=== PATIENT | male | born 1940 | race Caucasian/White ===

== ENCOUNTER → 2018-06-23 | Outpatient (CLI) | payer MEDICARE ==
[~2018-06-23] MED LIST: ANORO INH; CARVEDILOL3.125 MG PO; FINASTERIDE5 MG PO; FLOMAX0.4 MG PO; LISINOPRIL2.5 MG PO; MYRBETRIQ50 MG PO; TYLENOL PO; VENTOLIN HFA18 GM INH
--- NOTE | 2018-06-23 15:23 | Diagnostic Imaging Report ---
EXAMINATION: PA and lateral views of the chest. COMPARISON: None CLINICAL HISTORY: Preoperative study for prostate surgery DISCUSSION: The lungs are hyperinflated with increased AP diameter of the chest and hyperlucencies in the upper lung zones. Linear opacities in the lung bases compatible with subsegmental atelectasis. No airspace consolidation or pleural effusion. Tortuous thoracic aorta with otherwise normal cardiomediastinal contour. No acute osseous abnormalities. Multiple healed right rib fracture deformities. Cervical spine fusion hardware and left proximal humeral surgical hardware partially visualized. IMPRESSION: Linear subsegmental atelectasis in the lung bases. Pulmonary hyperinflation and upper lung hyperlucencies compatible with emphysema. Signed by: Dr. Eliseo Cummings M.D. on 06/23/2018 3:20 PM
[2018-06-23 15:48] LABS: BASOPHILS % 0.3 % (0.0-1.0); EOSINOPHILS # (AUTO) 0.2 (0.0-0.4); EOSINOPHILS % 2.8 % (0.0-6.0); HEMATOCRIT 38.3 % (38.2-49.6); HEMOGLOBIN 12.7 g/dL (14.0-18.0); LYMPHOCYTES # (AUTO) 2.1 (1.0-3.2); LYMPHOCYTES % 36.5 % (18.0-39.1); MEAN CORPUSCULAR HEMOGLOBIN 30.8 pg (28-32); MEAN CORPUSCULAR HGB CONC 33.2 g/dL (31-35); MEAN CORPUSCULAR VOLUME 92.7 fL (81-99); MONOCYTES # (AUTO) 0.5 (0.2-0.8); NEUTROPHILS % 51.2 % (38.7-80.0); PLATELET COUNT 188 x10e3/uL (140-360); RED BLOOD COUNT 4.13 x10e6/uL (4.3-5.7); RED CELL DISTRIBUTION WIDTH 13.2 % (11.7-14.4)
--- OUTSIDE RECORDS SUMMARY | 2018-06-24 08:36 | XMS REPORT ---
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 Assessment Arthritis M19.90 Active Assessment Obstructive sleep apnea G47.33 Active Assessment Chronic airway obstruction, not elsewhere classified J44.9 Active Problem 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 Problem Systolic dysfunction I51.9 Active Problem Prostate cancer C61 Active Problem Obstructive sleep apnea G47.33 Active Problem Arthritis M19.90 Active Problem Chronic airway obstruction, not elsewhere classified J44.9 Active Medications Medication Code System Code Instructions Start Date End Date Status Dosage Coreg [facility] 99137657186 3.125 MG Orally twice a day (bid) Active as directed Aleve [facility] [address]-64 Active not defined Coreg ND 06696781989 3.125 MG Orally twice a day (bid) Active as directed Lisinopril ND 88992306961 2.5 MG Orally Once a day Active 1 tablet Flomax ND 16266001601 0.4 MG Orally Once a day Active 1 capsule Vital Signs Date/Time: Apr 02, 2018 BMI 39.06 Index Weight 200 lbs Height 5'8 in Cardiac Monitoring Heart Rate 48 /min Blood Pressure Diastolic 58 mm Hg Blood Pressure Systolic 118 mm Hg Results No Known Results Summary Purpose eClinical[employer] Submission
--- OUTSIDE RECORDS SUMMARY | 2018-06-24 08:36 | XMS REPORT ---
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 Problem Chronic airway obstruction, not elsewhere classified J44.9 Active Problem Obstructive sleep apnea G47.33 Active Problem 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 Assessment Systolic dysfunction I51.9 Active Assessment Chronic airway obstruction, not elsewhere classified J44.9 Active Problem Systolic dysfunction I51.9 Active Problem Arthritis M19.90 Active Medications Medication Code System Code Instructions Start Date End Date Status Dosage Tramadol HCl [facility] 32554898553 50 MG Orally every 6 hrs Active 1 tablet as needed Flomax ND 01112349979 0.4 MG Orally Once a day Active 1 capsule Coreg [facility] 89580161768 3.125 MG Orally twice a day (bid) Active as directed Lisinopril [facility] 84533219543 2.5 MG Orally Once a day Active 1 tablet Aleve [facility] [address]-92 Active not defined Vital Signs Date/Time: May 08, 2017 BMI 40.03 Index Weight 205 lbs Height 5'8 in Cardiac Monitoring Heart Rate 48 /min Blood Pressure Diastolic 72 mm Hg Blood Pressure Systolic 132 mm Hg Results No Known Results Summary Purpose [employer]ClinicalWorks Submission
--- OUTSIDE RECORDS SUMMARY | 2018-06-24 08:36 | XMS REPORT ---
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
--- OUTSIDE RECORDS SUMMARY | 2018-06-24 08:36 | XMS REPORT | Summary of Care ---
Author Author [facility] Address Unknown Phone Unavailable Encounter Deyanirar_gisel([facility]) [id number] Date(s): 04/21/15 - 05/20/15 [facility] Discharge Disposition: Home Attending Physician: Sangeetha Baker MD Vital Signs No data available for this section Problem List No data available for this section Allergies, Adverse Reactions, Alerts No data available for this section Medications No data available for this section Results No data available for this section Immunizations No data available for this section Procedures No data available for this section Social History No data available for this section Assessment and Plan No data available for this section
--- OUTSIDE RECORDS SUMMARY | 2018-06-24 08:36 | XMS REPORT ---
Author Author Chris Perez Organization [employer] Address Unknown Phone Unavailable Care Team Providers Care Retail Zone Specialist Name Role Phone Chris Perez CP Unavailable [...] Start Date End Date Status Dosage Coreg [facility] 30644421726 3.125 MG Orally twice a day (bid) Active as directed Lisinopril ND 27675923224 2.5 MG Orally Once a day Active 1 tablet Tramadol HCl ND 80329066525 50 MG Orally every 6 hrs Active 1 tablet as needed Aleve [facility] [address]-00 Active not defined Flomax [facility] 68369001622 0.4 MG Orally Once a day Active 1 capsule Vital Signs Date/Time: Nov 27, 2016 BMI 39.25 Index Weight 201 lbs Height 5'8 in Cardiac Monitoring Heart Rate 64 /min Blood Pressure Diastolic 72 mm Hg Blood Pressure Systolic 132 mm Hg Results No Known Results Summary Purpose [employer]ClinicalWorks Submission
--- OUTSIDE RECORDS SUMMARY | 2018-06-24 08:36 | XMS REPORT | Summary of Care ---
Author Author [facility] Address Unknown Phone Unavailable Encounter HQ Encntr_gisel([facility]) [id number] Date(s): 10/21/16 - 11/19/16 [facility] Discharge Disposition: Home or Self Care Attending Physician: Sangeetha Baker MD Vital Signs [...]
--- OUTSIDE RECORDS SUMMARY | 2018-06-24 08:36 | XMS REPORT | Summary of Care ---
Author Author [facility] Outpatient Imaging [facility] Outpatient Imaging [place] Address Unknown Phone Unavailable Encounter HQ Encntr_alias([facility]) [id number] Date(s): 03/14/17 - 03/14/17 [facility] Outpatient Imaging [place] [address] [place], [place] [address]- [phone] Encounter Diagnosis Chronic obstructive pulmonary disease, unspecified (Final) - 03/19/17 Discharge Disposition: Home or Self Care Attending Physician: Jaqueline Robins MD Vital Signs No data available for [...]
--- OUTSIDE RECORDS SUMMARY | 2018-06-24 08:36 | XMS REPORT ---
Author Author [facility] Address Unknown Phone Unavailable Care Team Providers Care Desulfurizer Machine Name Role Phone PÉREZ BROWN Unavailable Unavailable Problems This patient has no known problems. Allergies, Adverse Reactions, Alerts This patient has no known allergies or adverse reactions. Medications This patient has no known medications. Results Test Description Test Time Test Comments Text Results Atomic Results Result Comments CHEST 2 VIEWS 2018-06-23 15:16:00 [place] [address] Patient Name: PHILIPP SANTIAGO MR #: [id number] : 1940 Age/Sex: 78/M Req #: [id number] [facility] Physician: Ordered by: PÉREZ BROWN MD Report #: [id number] Location: OR Room/Bed: Procedure: [id number] DX/CHEST 2 VIEWS Exam Date: 06/23/18 Exam Time: 1505 REPORT STATUS: Signed EXAMINATION: PA and lateral views of the chest. COMPARISON: None CLINICAL HISTORY: Preoperative study for prostate surgery DISCUSSION: The lungs are hyperinflated with increased AP diameter of the chest and hyperlucencies in the upper lung zones. Linear opacities in the lung bases compatible with subsegmental atelectasis. No airspace consolidation or pleural effusion. Tortuous thoracic aorta with otherwise normal cardiomediastinal contour. No acute osseous abnormalities. Multiple healed right rib fracture deformities. Cervical spine fusion hardware and left proximal humeral surgical hardware partially visualiz ed. IMPRESSION: Linear subsegmental atelectasis in the lung bases. Pulmonary hyperinflation and upper lung hyperlucencies compatible with emphysema. Signed by: Dr. Hector Maldonado M.D. on 06/23/2018 3:20 PM Dictated By: HECTOR MALDONADO MD 1520 Transcribed By: TRE on 06/23/18 1520 COPY TO: PÉREZ BROWN MD
--- OUTSIDE RECORDS SUMMARY | 2018-06-24 08:36 | XMS REPORT | Summary of Care ---
Author Author [facility] Address Unknown Phone Unavailable Encounter Almantr_gisel([facility]) [id number] Date(s): 05/26/15 - 06/24/15 [facility] Discharge Disposition: Home Attending Physician: Sangeetha Baker [...]
--- OUTSIDE RECORDS SUMMARY | 2018-06-24 08:36 | XMS REPORT | Continuity of Care Document ---
Author Author [facility] Address Unknown Phone Unavailable Problems Problem Status Onset Date Classification Date Reported Comments Source Chronic obstructive pulmonary disease, unspecified 03/20/2017 06/20/2017 [facility] D[facility] J44.9 - CHRONIC OBSTRUCTIVE PULMONARY Active 03/14/2017 [facility] Daugherty S/P TOTAL SHOULDER ARTHROPLASTY Active 08/24/2016 [facility] Chronic airway obstruction, not elsewhere classified Active Diagnosis 06/02/2018 Chris Perez Obstructive sleep apnea Active Diagnosis 06/02/2018 Chris Perez Atheroscler-limb&claudic Active Diagnosis 06/02/2018 Chris Perez Systolic dysfunction Active Diagnosis 06/02/2018 Chris Perez Arthritis Active Diagnosis 06/02/2018 Chris Perez Other symptoms involving cardiovascular system Active Diagnosis 06/02/2018 Chris Perez Prostate cancer Active Problem 06/02/2018 Chris Perez RT SHOULDER Active [facility] Medications Medication Details Route Status Patient Instructions Ordering Provider Order Date Source Lisinopril 1 tablet Orally Active 2.5 MG Orally Once a day Chris Perez Coreg as directed Orally Active 3.125 MG Orally twice a day (bid) Chris Perez Tramadol HCl 1 tablet as needed Orally Active 50 MG Orally every 6 hrs Chris Perez Aleve not defined NA Active dayne Perez Flomax 1 capsule Orally Active 0.4 MG Orally Once a day Chris Perez Allergies, Adverse Reactions, Alerts Substance Category Reaction Severity Reaction type Status Date Reported Comments Source Morphine Sulfate Adverse Reaction Info Not Available Adverse Reaction Active 04/02/2018 Chris Perez Immunizations Immunization Date Given Site Status Last Updated Comments Source Results Order Name Results Value Reference Range Date Interpretation Comments Source Chest 2 views DX Chest 2 views DX CHEST TWO VIEW INDICATION: Chronic obstructive pulmonary disease. No acute complaints at this time. COMPARISON: 03/14/2017 chest x-ray FINDINGS: Lungs are hyperinflated. Mild bibasal scarring. No acute infiltrate or pleural effusion. Cardiomediastinal silhouette and bony thorax normal. IMPRESSION: Pulmonary hyperinflation stable at a one year interval. No acute infiltrate. END IMPRESSION SL: [id number] 03/26/2018 - - Read by: Trey Carmen MD Dictated Date/time: 03/26/18 13:36 Electronically Signed by: Trey Carmen MD 03/26/18 13:37 FINAL REPORT [facility] Chest 2 views DX Chest 2 views DX Clinical Indication: - J44.9 Chronic obstructive pulmonary disease, decreased pulse Comparison: None FINDINGS: The PA and lateral chest radiographs shows normal lung volumes without interstitial or airspace opacities, pleural effusions or pneumothorax. There is eventration of the diaphragm. The cardiomediastinal contours are normal for the age of the patient with aortic tortuosity. There are degenerative changes in the spine and shoulders. IMPRESSION: No chest radiographic evidence of acute cardiopulmonary disease. SL: [id number] 03/14/2017 - - Read by: Remy Lentz MD Dictated Date/time: 03/14/17 15:49 Electronically Signed by: Remy Lentz MD 03/14/17 15:50 FINAL REPORT [facility] Vital Signs Vital Sign Value Date Comments Source Weight 200 04/02/2018 Ahmed Ahmed Heart Rate 48 04/02/2018 Ahmed Ahmed Diastolic (mm Hg) 58 04/02/2018 Ahmed Ahmed Systolic (mm Hg) 118 04/02/2018 Ahmed Ahmed Weight 205 05/08/2017 Ahmed Ahmed Heart Rate 48 05/08/2017 Ahmed Ahmed Diastolic (mm Hg) 72 05/08/2017 Ahmed Ahmed Systolic (mm Hg) 132 05/08/2017 Ahmed Ahmed Weight 201 11/27/2016 Ahmed Ahmed Heart Rate 64 11/27/2016 Ahmed Ahmed Diastolic (mm Hg) 72 11/27/2016 Ahmed Ahmed Systolic (mm Hg) 132 11/27/2016 Ahmed Ahmed Encounters Location Location Details Encounter Type Encounter Number Reason For Visit Attending Provider ADM Date DC Date Status Source [facility] Patients [id number] [facility] 04/21/2015 05/21/2015 [facility] Patients [id number] [facility] 05/26/2015 06/25/2015 [facility] HOOPER OP Therapy Patients [id number] Sangeetha Samuel 10/21/2016 11/20/2016 [facility] Outpatient Imaging [facility] [id number] Jaqueline Robins 03/14/2017 03/15/2017 K[facility] WILKERSON [place] Procedures Procedure Code Date Perfomer Comments Source
== END | disposition home or self-care (01) ==
LOC: RAD 05:00 → OR 06-24 08:32 → EDSTATUS 06-24 10:30
PROVIDERS: ATTEND Urology
DX: C61 Malignant neoplasm of prostate (principal); Z53.09 Procedure and treatment not carried out because of other contraindication
CPT/HCPCS: 36415; 71046; 85025; 86850; 86900; 93005

== ENCOUNTER 2018-07-20 12:15 | Inpatient (IN) | payer MEDICARE ==
[~2018-07-20] VITALS: Ht 172.7 cm; Wt 96.2 kg
[2018-07-20] MEDS ORDERED: CEFAZOLIN SOD 1 GM/NS 50ML 50 ML IV ONE (12:28)
[2018-07-20 14:33] LABS: ANION GAP 10.5 mmol/L (8-16); BLOOD UREA NITROGEN 24 mg/dL (7-26); BUN/CREATININE RATIO 22 (6-25); CALCIUM 9.6 mg/dL (8.4-10.2); CARBON DIOXIDE 27 mmol/L (22-29); CHLORIDE 107 mmol/L (98-107); CREATININE, SERUM 1.07 mg/dL (0.72-1.25); EST GLOMERULAR FILTRATION RATE > 60 ML/MIN (60-); GLUCOSE 78 mg/dL (74-118); POTASSIUM 4.5 mmol/L (3.5-5.1); SODIUM 140 mmol/L (136-145)
[2018-07-20] MEDS ORDERED: MIDAZOLAM HCL 2 MG/2 ML VIAL ONE (16:49)
[2018-07-20] MEDS ORDERED: KETAMINE HCL INJ 50 MG/ML 10 ML VIAL ONE (16:49)
[2018-07-20] MEDS ORDERED: FENTANYL CITRATE/PF 100MCG/2 ML INJ ONE ×2 (16:49→17:53)
[2018-07-20] MEDS ORDERED: D5.45%NS/KCL 20MEQ 1,000 ML IV SCH (17:03)
[2018-07-20] MEDS ORDERED: ACETAMINOPHEN 1000 MG/100 ML IV PRN (17:15)
[2018-07-20] MEDS ORDERED: HYDROMORPHONE 0.2MG/ML-SOD CHL 30ML PCA SYRINGE IV PRN (17:15)
[2018-07-20] MEDS ORDERED: NALOXONE HCL INJ 0.4 MG/ML AMP IV PRN (17:15)
[2018-07-20] MEDS ORDERED: ONDANSETRON HCL INJ 2MG/ML 2ML 2 MG/ML VIAL IV PRN (17:15)
[2018-07-20] MEDS ORDERED: DIPHENHYDRAMINE HCL INJ 50 MG/ML VIAL IM PRN (17:15)
[2018-07-20] MEDS ORDERED: HYDROMORPHONE 2MG/ML 2 MG/ML ML ONE (17:56)
[2018-07-20] MEDS ORDERED: METOCLOPRAMIDE HCL 10 MG/2ML VIAL ONE (17:56)
[2018-07-20] MEDS ORDERED: ACETAMINOPHEN 1000 MG/100 ML 100 ML IV PRN ×2 (18:00→18:45)
--- NOTE | 2018-07-20 18:03 | NUR ---
received report from may in recovery awaiting for pt to arrive to unit
[2018-07-20] MEDS ORDERED: HYDROMORPHONE 0.2MG/ML-SOD CHL 30ML PCA SYRINGE IV ONE (18:23)
--- NOTE | 2018-07-20 18:40 | NUR ---
received pt to floor aa0x3 but drowsy v/s read normal except for 02 sat of 72%. on 2 L, raised pt up and increased to 3l pt 02 sat increased to 94% on ra pt c/o of pain rating it a 4/10 to his stomach abd site dressing is clean and dry. asad drain to the left lower abd left ac 20 with lr running site is clean and dry staple processing machine operator discontinued per md monteiro per pt c/o of extreme nausea will continue to monitor pt until shift change call light is within easy reach, instructed to call for assistance if needed
[2018-07-20] MEDS ORDERED: SEVOFLURANE INHAL SOLN 250 ML PEN BTL ONE (18:42)
[2018-07-20] MEDS ORDERED: ONDANSETRON HCL INJ 2MG/ML 2ML 2 MG/ML VIAL ONE (18:42)
[2018-07-20] MEDS ORDERED: PROPOFOL IV EMULSION 10 MG/ML 20 ML VIAL ONE (18:42)
[2018-07-20] MEDS ORDERED: PHENYLEPHRINE HCL 1% 10 MG/ML VIAL ONE (18:42)
[2018-07-20] MEDS ORDERED: LIDOCAINE HCL 2% LOCAL INJ 5 ML SDV VIAL INJ ONE (18:42)
[2018-07-20] MEDS ORDERED: ROCURONIUM BROMIDE 10 MG/ML 5ML VIAL ONE (18:42)
[2018-07-20] MEDS ORDERED: NEOSTIGMINE 5 MG/5ML SYR ONE (18:42)
[2018-07-20] MEDS ORDERED: DEXAMETHASONE SOD PHOS INJ 4 MG/ML VIAL ONE (18:42)
[2018-07-20] MEDS ORDERED: GLYCOPYRROLATE INJ 1MG/ 5 ML SYR ONE (18:42)
[2018-07-20] MEDS ORDERED: ACETAMINOPHEN 325 MG TAB PO PRN (18:45)
[2018-07-20] MEDS ORDERED: HYDROMORPHONE 1MG/1ML INJ IV PRN (18:45)
[2018-07-20] MEDS ORDERED: HYDROCODONE/APAP 5MG-325MG TAB PO PRN (18:45)
[2018-07-20] MEDS: HYDROMORPHONE 2MG/ML 2 MG/ML ML IV PRN (19:39)
[2018-07-20 19:40] VITALS: BP 144/70
--- NOTE | 2018-07-20 19:40 | NUR ---
PATIENT C/O PAIN TO THE ABDOMEN WITH PAIN SCORE #9, MEDICATED WITH DILAUDID ORDERED. DRESSING DRY AND INTACT TO THE ABDOMEN WITHOUT BLEEDING, VIKTOR DRAIN INTACT. CALL LIGHT WITHIN EASY REACH, PATIENT INSTRUCTED TO CALL FOR ASSISTANCE NEEDED.
[2018-07-20 20:00] VITALS: BP 144/70
--- NOTE | 2018-07-20 21:20 | NUR ---
PATIENT IS SOUNDLY ASLEEP, NO RESPIRATORY DISTRESS OBSERVED AND HE DENIES PAIN. HE'S NOT STAYING FULLY AWAKE TO COMPLETE HIS ADMISSION ASSESSMENT.
[2018-07-20] MEDS: CEFAZOLIN SOD 1 GM/NS 50ML 50 ML IV SCH (22:17)
[2018-07-21] VITALS (27 sets, daily range): BP systolic 94–162; BP diastolic 55–90
[2018-07-21] MEDS: HYDROMORPHONE 2MG/ML 2 MG/ML ML IV PRN ×2 (01:10→14:04)
[2018-07-21] MEDS: ONDANSETRON HCL INJ 2MG/ML 2ML 2 MG/ML VIAL IV PRN ×3 (01:11→14:04)
--- NOTE | 2018-07-21 01:11 | NUR ---
PATIENT C/O NAUSEA AND PAIN TO THE ABDOMEN WITHE PAIN SCORE #7, MEDICATED WITH DILAUDID ORDERED. ASSISTED WITH ADLS, BED ALARM ON, CALL LIGHT WITHIN EASY REACH.
--- NOTE | 2018-07-21 01:23 | History and Physical ---
The patient just now received on medical floor for status post bilateral pelvic lymph node dissection, done by Dr. Reddy Harding. HISTORY OF PRESENT ILLNESS: This is a pleasant 78-year-old male, who is now status post bilateral pelvic lymph node dissection removal. The patient had baseline Corie 8 prostate cancer. He also has stable COPD, obstructive sleep apnea. The patient also has enlarged prostate as well. He is on multiple medication. He has hypertension. The patient is stable. WOOD SETTER with pain medication seemed to cause the patient some drowsiness. The patient is arousable to awake, however. Medication will be adjusted. PAST MEDICAL HISTORY: Corie 8 prostate cancer. Enlarged prostate. Hypertension. PAST SURGICAL HISTORY: He had left shoulder surgery, TURP procedure. SOCIAL HISTORY: The patient does not smoke or use alcohol. No recreational drug use. ALLERGIES: TO MORPHINE. HOME MEDICATIONS: List will be available for review, but basically Coreg, finasteride, lisinopril, Myrbetriq, Flomax, Anoro, and Tylenol p.r.n. PHYSICAL EXAMINATION: VITAL SIGNS: PACU blood pressure is 110/62, pulse rate 80, respirations 18, temperature is 98. GENERAL: The patient is not in acute distress, awake. HEENT: Normocephalic, atraumatic. Anicteric. NECK: Supple grossly. PULMONARY: Diminished breath sounds. CARDIOVASCULAR: S1 and S2. Regular rate and rhythm. ABDOMEN: Soft, status post bilateral pelvic lymph node dissection. EXTREMITIES: No cyanosis or edema. NEUROLOGIC: No gross focal deficit. LABORATORY DATA: Still pending. IMPRESSION: 1. Postoperative day #1 status post bilateral pelvic lymph node dissection. 2. Corie 8 prostate cancer. 3. Baseline chronic obstructive pulmonary disease, obstructive sleep apnea, depression, hypertension, enlarged prostate. PLAN: Repeat the lab work in the morning. Pain medication for as needed. Oral pain medications, Tylenol. We will monitor the patient closely. We will repeat the lab work. Gentle IV fluids. MD DANIELLE Elliott/CYL /[id number]
--- NOTE | 2018-07-21 04:52 | NUR ---
NOTIFIED BY RESPIRATORY THERAPIST THAT THE PATIENT'S HEART RATE IS [address] ON THE C-PAP. UPON ASSESSMENT THE PATIENT SEEM ANXIOUS AND HE WANTED THE C-PAP TAKEN OFF. HE WAS EDUCATED ON THE IMPORTANCE OF HAVING THE C-PAP BUT HE CONTINUE TO REQUEST IT TAKEN OFF. IT WAS REMOVED, RED AREA NOTED ON HIS NOSE AND HE DENIES PAIN AT THE SURGICAL SITE. HE WAS INSTRUCTED TO BREATH IN AND OUT SLOWLY. WILL REASSESS THE HEART RATE ONCE THE PATIENT IS RELAX.
--- NOTE | 2018-07-21 05:27 | NUR ---
VITAL SIGNS 105/84, 135,19, OXYGEN SATURATION 100% ON 3L/NC. NO RESPIRATORY DISTRESS OBSERVED, PATIENT STATED "I FEEL FINE". WILL NOTIFY THE ATTENDING PHYSICIAN OF THE PATIENT'S HEART RATE.
[2018-07-21 05:40] LABS: BASOPHILS % 0.1 % (0.0-1.0); HEMATOCRIT 37.9 % (38.2-49.6); HEMOGLOBIN 12.7 g/dL (14.0-18.0); LYMPHOCYTES # (AUTO) 1.1 (1.0-3.2); LYMPHOCYTES % 9.2 % (18.0-39.1); MEAN CORPUSCULAR HEMOGLOBIN 31.1 pg (28-32); MEAN CORPUSCULAR HGB CONC 33.5 g/dL (31-35); MEAN CORPUSCULAR VOLUME 92.9 fL (81-99); MONOCYTES % 7.6 % (4.4-11.3); NEUTROPHILS # (AUTO) 10.2 (2.1-6.9); NEUTROPHILS % 82.2 % (38.7-80.0); PLATELET COUNT 198 x10e3/uL (140-360); RED BLOOD COUNT 4.08 x10e6/uL (4.3-5.7); RED CELL DISTRIBUTION WIDTH 12.9 % (11.7-14.4)
[2018-07-21 05:53] LABS: ANION GAP 12.4 mmol/L (8-16); CREATININE, SERUM 1.25 mg/dL (0.72-1.25); POTASSIUM 4.4 mmol/L (3.5-5.1)
[2018-07-21] MEDS: CEFAZOLIN SOD 1 GM/NS 50ML 50 ML IV SCH ×3 (06:30→21:47)
[2018-07-21] MEDS ORDERED: SODIUM CHLORIDE 0.9% 500ML 500 ML IV ONE ×2 (08:45→18:00)
[2018-07-21] MEDS ORDERED: TRAMADOL HCL 50 MG TAB PO PRN (08:45)
[2018-07-21] MEDS ORDERED: CARVEDILOL 3.125 MG TAB PO SCH (09:00)
[2018-07-21] MEDS: PANTOPRAZOLE 40 MG 10ML VIAL IV SCH (09:06)
[2018-07-21] MEDS: DOCUSATE SODIUM 100 MG CAP PO SCH ×2 (09:07→17:00)
[2018-07-21] MEDS: SENNOSIDES 8.6 MG TAB PO SCH ×2 (09:07→17:32)
[2018-07-21] MEDS: CARVEDILOL 3.125 MG TAB PO SCH ×2 (09:15→17:31)
[2018-07-21] MEDS ORDERED: BISACODYL 10 MG SUPP PR ONE (09:15)
[2018-07-21] MEDS: SODIUM CHLORIDE 0.9% 1000ML 1,000 ML IV SCH ×2 (09:35→21:41)
--- NOTE | 2018-07-21 13:32 | NUR ---
PT C/O OF FAST HR, ASKED TO TAKE HR MANUALLY . READY 87 WITH IRREGULAR HEART BEAT PROTOCOL EGK ORDER AT THIS TIME
--- NOTE | 2018-07-21 14:04 | NUR ---
NOTIFIED MD K[facility]IS[facility] REGARDING EKG READING AND PT C/O CP. ORDERS TO CX MD MOLINA RECEIVED PT MEDICATED WITH DILAUDID FOR C/O CP V/S [id number] WITH HR OF 66
[2018-07-21] MEDS ORDERED: ADENOSINE 6 MG/2 ML VIAL IV NR (16:30)
--- NOTE | 2018-07-21 17:00 | NUR ---
NOTIFIED MD BROWN REGARDING PT CONDITION (A FIB, TACHYCARDIA, MD MOLINA CONSULT , LOW URINE OUTPUT, <200 CC IN 12 HR SHIFT). MD AWARE OF PT BEING TRANSFERED TO ICU, ORDERS TO GIVE 500NS BOLUS , AND ASK MD MOLINA ABOUT STARTING PT ON LOVENOX DRIP NOTIFIED MD MOLINA . MD MOLINA HAS STARTED PT ON ANTICOAGULANT THERAPY
--- NOTE | 2018-07-21 18:16 | NUR ---
PT TRANSFERRED TO ICU ROOM 192 AT THIS TIME
--- NOTE | 2018-07-21 18:22 | NUR ---
MD KOWALSKI COVERING FOR MD K[facility]IS[facility] NOTIFIED OF PT CONDITION AND OF TRANSFER TO ICU AT THIS TIME
[2018-07-21] MEDS: DILTIAZEM HCL 125 ML IV SCH ×3 (18:26→23:00)
--- NOTE | 2018-07-21 18:43 | NUR ---
recvd pt from [facility]. hr afib 133. started on cardizem iv as ordered, back now to nsr w/ occ pac, at bedside, updated on current status and poc.
[2018-07-21] MEDS: ENOXAPARIN SODIUM INJ 100 MG/ML SYR SC SCH (21:46)
[2018-07-21] MEDS ORDERED: HETASTARCH 6%/NACL INJ 500 ML IV ONE (22:30)
--- NOTE | 2018-07-21 23:02 | Consultation ---
DATE OF CONSULTATION: 07/21/2018 Cardiology Consultation CHIEF COMPLAINT: The patient is a 78-year-old with premature ventricular contractions. HISTORY OF PRESENT ILLNESS: The patient is a 78-year-old, who had pelvic lymph node dissection and noted to have some premature ventricular contractions after the surgery. The patient is in no chest pain. No shortness of breath. No syncope. No dizziness. PAST MEDICAL HISTORY: Significant for: 1. COPD. 2. Sleep apnea. 3. Prostate cancer. 4. Previous cholecystectomy. MEDICATIONS AT HOME: Include: 1. Coreg. 2. Lisinopril. 3. Flomax. 4. Proscar. SOCIAL HISTORY: The patient quit smoking 35 years ago. The patient does not drink. FAMILY HISTORY: The patient's mother and father both had heart disease. PHYSICAL EXAMINATION: GENERAL: The patient is a well-developed, well-nourished male, in no obvious distress. VITAL SIGNS: Included a temperature of 95.5, pulse of 68, blood pressure of 99/75. HEAD, EARS, EYES, NOSE, AND THROAT: The patient's cranium was normocephalic and atraumatic. Extraocular muscles were intact. Sclerae were anicteric. Pupils were equal, round, reactive to light. There is no pallor or cyanosis of the oral mucosa. There is no erythema, edema of the throat. NECK: Supple. No jugular venous distention. No carotid bruits. CHEST: Clear to auscultation and percussion. CARDIAC: Demonstrated normal S1 and S2 with a short 2/6 systolic murmur. ABDOMEN: Demonstrated good bowel sounds. No tenderness. No masses. EXTREMITIES: There was no clubbing, no cyanosis, no edema. NEUROLOGIC: The patient was alert and oriented x3. Cranial nerves II through XII are intact. Motor strength was +5/+5 in all limbs. The patient's EKG demonstrated normal sinus rhythm with some premature ventricular contractions. IMPRESSION: The patient is a 78-year-old, noted to have premature ventricular contractions and thus postoperatively, the patient has had no chest pain, no dyspnea. RECOMMENDATIONS: Are as follows: 1. The patient will need to be monitored on telemetry. 2. Repeat echocardiogram has been ordered. Eliseo White MD [facility]/MODL /[id number] cc: Hernando Joseph MD
[2018-07-22] VITALS (16 sets, daily range): BP systolic 99–152; BP diastolic 39–70
[2018-07-22] MEDS: ONDANSETRON HCL INJ 2MG/ML 2ML 2 MG/ML VIAL IV PRN (02:40)
[2018-07-22 05:06] LABS: BASOPHILS % 0.1 % (0.0-1.0); EOSINOPHILS # (AUTO) 0.2 (0.0-0.4); EOSINOPHILS % 2.1 % (0.0-6.0); HEMATOCRIT 33.2 % (38.2-49.6); HEMOGLOBIN 10.6 g/dL (14.0-18.0); LYMPHOCYTES # (AUTO) 1.3 (1.0-3.2); LYMPHOCYTES % 13.7 % (18.0-39.1); MEAN CORPUSCULAR HEMOGLOBIN 30.5 pg (28-32); MEAN CORPUSCULAR HGB CONC 31.9 g/dL (31-35); MEAN CORPUSCULAR VOLUME 95.4 fL (81-99); MONOCYTES # (AUTO) 1.1 (0.2-0.8); MONOCYTES % 12.2 % (4.4-11.3); NEUTROPHILS # (AUTO) 6.5 (2.1-6.9); NEUTROPHILS % 71.1 % (38.7-80.0); PLATELET COUNT 126 x10e3/uL (140-360); RED BLOOD COUNT 3.48 x10e6/uL (4.3-5.7); RED CELL DISTRIBUTION WIDTH 13.4 % (11.7-14.4)
[2018-07-22 05:25] LABS: ANION GAP 9.6 mmol/L (8-16); BLOOD UREA NITROGEN 33 mg/dL (7-26); BUN/CREATININE RATIO 32 (6-25); CALCIUM 8.3 mg/dL (8.4-10.2); CARBON DIOXIDE 24 mmol/L (22-29); CHLORIDE 106 mmol/L (98-107); CREATININE, SERUM 1.04 mg/dL (0.72-1.25); EST GLOMERULAR FILTRATION RATE > 60 ML/MIN (60-); GLUCOSE 106 mg/dL (74-118); POTASSIUM 4.6 mmol/L (3.5-5.1); SODIUM 135 mmol/L (136-145)
[2018-07-22] MEDS: CEFAZOLIN SOD 1 GM/NS 50ML 50 ML IV SCH ×3 (05:36→22:23)
[2018-07-22] MEDS: PANTOPRAZOLE 40 MG 10ML VIAL IV SCH (08:01)
[2018-07-22] MEDS: SODIUM CHLORIDE 0.9% 1000ML 1,000 ML IV SCH ×3 (08:01→20:25)
[2018-07-22] MEDS: DOCUSATE SODIUM 100 MG CAP PO SCH ×2 (08:01→17:26)
[2018-07-22] MEDS: ENOXAPARIN SODIUM INJ 100 MG/ML SYR SC SCH ×2 (08:02→20:57)
[2018-07-22] MEDS: SENNOSIDES 8.6 MG TAB PO SCH ×2 (08:02→17:26)
[2018-07-22] MEDS: CARVEDILOL 3.125 MG TAB PO SCH ×2 (08:02→17:26)
[2018-07-22] MEDS: DILTIAZEM HCL 30 MG TAB PO SCH ×2 (11:28→17:26)
[2018-07-22] MEDS ORDERED: BISACODYL 10 MG SUPP PR ONE (11:30)
--- NOTE | 2018-07-22 12:20 | NUR ---
Holding physical therapy evaluation since patient moved to higher level of care (ICU) from medical floor. Will need new PT orders for therapy services when appropriate. Thank you. Addendum: 07/22/18 at 1221 by Malick al PT Amended: Links added.
--- NOTE | 2018-07-22 13:22 | NUR ---
WOUND CARE PUP SCREEN Marques Score: 18 PUP: Moderate PUP Protocol LOS: 1 day Age: 78 [employer]. HOB < / = 30 Degrees Patient Position: Up Out of bed on Bedside Commode. PATIENT VISIT / SKIN CHECK: No Pressure Ulcers Identified. RECOMMENDATION: - Continue Moderate PUP Addendum: 07/22/18 at 1323 by Juliano Vogel RN Amended: Links added.
[2018-07-22] MEDS ORDERED: CITRATE OF MAGNESIA 300ML BOTTLE PO ONE (17:15)
--- NOTE | 2018-07-22 17:43 | NUR ---
Pt arrived from ICU. A&O x3. NC at 3LPM, IV to R hand patent NS at 100, no redness or swelling around insertion site. Pt requested to be up in chair at this time. at bedside. Resp WNL. Bonds catheter below bladder, patent clear yellow urine in collection bag. VIKTOR drain to L ABD, dressing surrounding CDI, draining serosanginous fluids. ABD incision open to air, nirmal aligned well approximated. No draining or redness to surgical site. No c/o pain at this time. Call light within reach, bed in lowest position.
--- NOTE | 2018-07-22 18:00 | NUR ---
PT TRANSFERRED TO ROOM 101 RN TO RESUME CARE
--- NOTE | 2018-07-22 18:52 | Progress Note ---
DATE: 07/22/2018 Medicine Progress Note Covering for Dr. Joseph. SUBJECTIVE: The patient is currently in the ICU. He had a cystoscopy with prostate, seems to be biopsies never performed. He developed atrial fibrillation with RVR requiring ICU on diltiazem drip. He is currently doing much better. He is on oral medication. Heart rate is stable at 79. Seems to be no further workup needed at this time. He underwent a PLND according to the nurse. OBJECTIVE: VITAL SIGNS: Temperature 97.7, pulse 76, respiratory rate 16, blood pressure 135/50, and pulse ox 99% on 3 L nasal cannula. GENERAL: Not in acute distress. Alert and oriented x3. Cooperative on examination. HEENT: Head is normocephalic and atraumatic. Eyes; pupils are equal, round, and reactive to light bilaterally. Extraocular movements are intact bilaterally. Throat, no evidence of erythema or exudates in the posterior pharynx. Has poor dentition. NECK: Supple. Good range of motion. PULMONARY: Clear to auscultation bilaterally. No wheezing, no rales, no rhonchi, no crackles appreciated. CARDIOVASCULAR: Positive S1 and S2. No murmurs, rubs, or gallops appreciated. ABDOMEN: Soft, nondistended, and nontender to palpation. Bowel sounds present. MUSCULOSKELETAL: Strength is 5/5 throughout. No evidence of any muscle deficits on examination. No weakness appreciated. NEUROLOGIC: Cranial nerves II through XII grossly intact. No evidence of any neurological deficits on exam. SKIN: Intact. Warm to touch. Good cap refill. PSYCHIATRIC: Normal affect and mood. EXTREMITIES: No edema. Good range of motion throughout. LABORATORY FINDINGS: Show white count 9.1, hemoglobin 10.6, hematocrit 33.2, and platelets of 126. Chemistry; sodium 135, potassium 4.2, chloride 106, bicarb 24, anion gap of 9.6, BUN 33, creatinine is 1, glucose 106, and calcium 8.3. MICROBIOLOGY: None. IMAGING STUDIES: None. IMPRESSION: 1. Prostate cancer, status post pelvic lymph node dissection performed by Urology. 2. History of rapid ventricular response, now rate controlled. 3. Chronic pain. 4. constipation. PLAN: Continue with the postop care. He is currently doing very well. His labs remain stable. He is currently on oral Cardizem, off IV diltiazem. Next, try to transfer to the medical floor. Would have to talk with Cardiology about anticoagulation. Otherwise, we will continue same plan of care and monitor very closely. Dr. Joseph will be available tomorrow. MD ROBYN Lemos/MAIK /[id number]
--- NOTE | 2018-07-22 19:00 | NUR ---
RECEIVED PATIENT IN BEDSIDE REPORT. PATIENT IS RESTING AT THIS TIME, EASILY AROUSED. NC@3L. L HAND 20G IV RUNNING NS @100ML/HR. SCD AND PATY HOSE IN PLACE. CASON DRAINING CLEAR, YELLOW URINE. NO PAIN REPORTED. DRESSING TO VIKTOR DRAIN IS DRY AND INTACT, WITH SOME DRY DRAINAGE TO OUTER L SIDE, VIKTOR DRAINING SEROSANGUINEOUS FLUID. SAFIA TO MIDLINE INCISION ARE OPEN TO AIR, WELL APPROXIMATED, SURROUNDING TISSUE NORMAL. BED LOCKED IN LOWEST POSITION, SIDE RAILS UP X2, CALL LIGHT IN REACH.
[2018-07-23] VITALS (9 sets, daily range): BP systolic 90–170; BP diastolic 46–72
--- NOTE | 2018-07-23 00:18 | NUR ---
WALKING ROUNDS PERFORMED, RECEIVED PT (R) SIDE LAYING, RESTING 18RR/MIN. NO S/SX OF DISTRESS NOTED. LEFT PT (R) SIDE LAYING IN BED, BED IN LOW LOCKED POSITION, SIDE RAILS UPX2, CALL LIGHT AND PHONE WITHIN REACH.
[2018-07-23 05:58] LABS: BASOPHILS % 0.3 % (0.0-1.0); EOSINOPHILS % 0.5 % (0.0-6.0); HEMATOCRIT 31.7 % (38.2-49.6); HEMOGLOBIN 10.2 g/dL (14.0-18.0); LYMPHOCYTES # (AUTO) 1.5 (1.0-3.2); LYMPHOCYTES % 20.5 % (18.0-39.1); MEAN CORPUSCULAR HEMOGLOBIN 30.7 pg (28-32); MEAN CORPUSCULAR HGB CONC 32.2 g/dL (31-35); MEAN CORPUSCULAR VOLUME 95.5 fL (81-99); MONOCYTES # (AUTO) 0.8 (0.2-0.8); MONOCYTES % 11.4 % (4.4-11.3); NEUTROPHILS # (AUTO) 4.9 (2.1-6.9); NEUTROPHILS % 66.8 % (38.7-80.0); PLATELET COUNT 112 x10e3/uL (140-360); RED BLOOD COUNT 3.32 x10e6/uL (4.3-5.7); RED CELL DISTRIBUTION WIDTH 13.2 % (11.7-14.4)
[2018-07-23] MEDS: CEFAZOLIN SOD 1 GM/NS 50ML 50 ML IV SCH ×3 (06:10→21:57)
[2018-07-23] MEDS: SODIUM CHLORIDE 0.9% 1000ML 1,000 ML IV SCH (06:10)
[2018-07-23 06:14] LABS: ANION GAP 8.1 mmol/L (8-16); BLOOD UREA NITROGEN 24 mg/dL (7-26); BUN/CREATININE RATIO 29 (6-25); CALCIUM 8.5 mg/dL (8.4-10.2); CARBON DIOXIDE 25 mmol/L (22-29); CHLORIDE 107 mmol/L (98-107); CREATININE, SERUM 0.84 mg/dL (0.72-1.25); EST GLOMERULAR FILTRATION RATE > 60 ML/MIN (60-); GLUCOSE 89 mg/dL (74-118); POTASSIUM 4.1 mmol/L (3.5-5.1); SODIUM 136 mmol/L (136-145)
[2018-07-23] MEDS: DILTIAZEM HCL 30 MG TAB PO SCH ×2 (08:29→17:41)
[2018-07-23] MEDS: DOCUSATE SODIUM 100 MG CAP PO SCH ×2 (08:30→17:41)
[2018-07-23] MEDS: SENNOSIDES 8.6 MG TAB PO SCH ×2 (08:30→17:41)
[2018-07-23] MEDS: CARVEDILOL 3.125 MG TAB PO SCH ×2 (08:30→17:41)
[2018-07-23] MEDS: PANTOPRAZOLE 40 MG 10ML VIAL IV SCH (08:30)
[2018-07-23] MEDS ORDERED: ONDANSETRON HCL 4 MG ORAL DISINTEGRATING TAB PO PRN (10:15)
--- NOTE | 2018-07-23 17:54 | NUR ---
VIKTOR drain dressing changed at this time. Blood saturated dressing. 60cc of bright red blood collected in VIKTOR drain. notified.
--- NOTE | 2018-07-23 17:56 | NUR ---
called back. New orders received.
--- NOTE | 2018-07-23 19:00 | NUR ---
RECEIVED PATIENT IN BEDSIDE REPORT. PATIENT STATES NO PAIN AT THIS TIME. NO S&S OF DISTRESS NOTED AT THIS TIME. PATIENT SITTING IN RECLINER AT THIS TIME. VIKTOR DRAIN HAS SMALL AMOUNT OF SEROSANGUINEOUS DRAINAGE, AND SOME CLOTS. DRESSING C/D/I. BED LOCKED IN LOWEST POSITION, SIDE RAILS UPX2, CALL LIGHT IN REACH.
[2018-07-23 20:16] LABS: BASOPHILS % 0.4 % (0.0-1.0); EOSINOPHILS # (AUTO) 0.1 (0.0-0.4); HEMATOCRIT 31.8 % (38.2-49.6); HEMOGLOBIN 10.6 g/dL (14.0-18.0); LYMPHOCYTES # (AUTO) 1.6 (1.0-3.2); MEAN CORPUSCULAR HEMOGLOBIN 31.5 pg (28-32); MEAN CORPUSCULAR HGB CONC 33.3 g/dL (31-35); MEAN CORPUSCULAR VOLUME 94.4 fL (81-99); MONOCYTES % 10.1 % (4.4-11.3); NEUTROPHILS # (AUTO) 6.7 (2.1-6.9); NEUTROPHILS % 70.8 % (38.7-80.0); PLATELET COUNT 153 x10e3/uL (140-360); RED BLOOD COUNT 3.37 x10e6/uL (4.3-5.7); RED CELL DISTRIBUTION WIDTH 13.1 % (11.7-14.4)
--- NOTE | 2018-07-23 23:39 | NUR ---
PATIENT'S O2 SAT NOTED TO BE IN HIGH 70S-LOW 80S WHILE SLEEPING WITH CPAP MACHINE ON. WOKE PATIENT UP, PUT O2 BACK ON VIA NC @ 3L, O2 SAT INCREASED TO 94%. TOLD PATIENT HE WILL NEED TO SLEEP WITH THE O2 TONIGHT AND WILL TRY TO WEAN OFF TOMORROW WHEN AWAKE.
[2018-07-24] VITALS: BP 121/59
[2018-07-24 04:00] VITALS: BP 115/49
[2018-07-24 05:42] LABS: BASOPHILS # (AUTO) 0.1 (0.0-0.1); BASOPHILS % 0.6 % (0.0-1.0); EOSINOPHILS # (AUTO) 0.1 (0.0-0.4); EOSINOPHILS % 1.6 % (0.0-6.0); HEMATOCRIT 34.1 % (38.2-49.6); HEMOGLOBIN 10.8 g/dL (14.0-18.0); LYMPHOCYTES # (AUTO) 1.9 (1.0-3.2); LYMPHOCYTES % 20.9 % (18.0-39.1); MEAN CORPUSCULAR HEMOGLOBIN 30.3 pg (28-32); MEAN CORPUSCULAR HGB CONC 31.7 g/dL (31-35); MEAN CORPUSCULAR VOLUME 95.5 fL (81-99); MONOCYTES # (AUTO) 0.9 (0.2-0.8); MONOCYTES % 9.9 % (4.4-11.3); NEUTROPHILS % 66.2 % (38.7-80.0); PLATELET COUNT 176 x10e3/uL (140-360); RED BLOOD COUNT 3.57 x10e6/uL (4.3-5.7); RED CELL DISTRIBUTION WIDTH 13.1 % (11.7-14.4)
[2018-07-24] MEDS: CEFAZOLIN SOD 1 GM/NS 50ML 50 ML IV SCH ×2 (06:04→13:56)
[2018-07-24 06:45] LABS: ANION GAP 9.9 mmol/L (8-16); BLOOD UREA NITROGEN 25 mg/dL (7-26); BUN/CREATININE RATIO 29 (6-25); CALCIUM 8.9 mg/dL (8.4-10.2); CARBON DIOXIDE 26 mmol/L (22-29); CHLORIDE 106 mmol/L (98-107); CREATININE, SERUM 0.87 mg/dL (0.72-1.25); EST GLOMERULAR FILTRATION RATE > 60 ML/MIN (60-); GLUCOSE 103 mg/dL (74-118); POTASSIUM 3.9 mmol/L (3.5-5.1); SODIUM 138 mmol/L (136-145)
--- NOTE | 2018-07-24 07:21 | NUR ---
RECEIVED PATIENT SITTING UP AT SIDE OF BED NO SIGNS OF DISTRESS. BED LOW, WHEELS LOCKED, SIDE RAILS X2. CALL LIGHT IN REACH WILL CONTINUE TO MONITOR PATIENT.
[2018-07-24 07:49] VITALS: BP 144/73
--- NOTE | 2018-07-24 08:00 | NUR ---
EMPTIED 5 CC SEROUS FLUID FROM VIKTOR DRAIN.
[2018-07-24] MEDS: CARVEDILOL 3.125 MG TAB PO SCH (08:21)
[2018-07-24] MEDS: SENNOSIDES 8.6 MG TAB PO SCH (08:21)
[2018-07-24] MEDS: DOCUSATE SODIUM 100 MG CAP PO SCH (08:21)
[2018-07-24] MEDS: DILTIAZEM HCL 30 MG TAB PO SCH (08:22)
[2018-07-24 08:56] VITALS: BP 144/73
--- NOTE | 2018-07-24 09:00 | NUR ---
PATIENT A/O X3, EVEN RESPIRATIONS ON 2LNC. ABDOMINAL INCISION OPEN TO AIR WITH SAFIA. VIKTOR DRAIN INTACT. BOWEL SOUNDS ACTIVE, NO EDEMA. PATIENT ABLE TO AMBULATE WITH STANDBY ASSIST. TELE #8 NSR WITH PVC'S. LEFT HAND 20 GAUGE IV SL. RIGHT AC 20 GAUGE SL. BED LOW, WHEELS LOCKED, CALL LIGHT IN REACH. WILL CONTINUE TO MONITOR PATIENT.
--- NOTE | 2018-07-24 10:33 | NUR ---
EDUCATED ABOUT IMM, SIGNED, FILED IN CHART, WITH COPY LEFT WITH FAMILY AT BEDSIDE.
[2018-07-24 12:00] VITALS: BP 128/61
[2018-07-24 12:46] VITALS: BP 128/61
[2018-07-24] MEDS ORDERED: ULTRAM50 MG PO (15:44)
[2018-07-24] MEDS ORDERED: CARDIZEM60 MG PO (15:44)
--- NOTE | 2018-07-24 16:15 | NUR ---
REMOVED PATIENTS IV'S. CATHETER TIP INTACT AND PRESSURE DRESSING APPLIED. REMOVED PATIENTS VIKTOR DRAIN. TIP OF DRAIN INTACT ON REMOVAL AND PRESSURE DRESSING APPLIED TO SITE.
--- NOTE | 2018-07-24 16:25 | NUR ---
PATIENT DISCHARGED FROM FACILITY. PATIENT GATHERED ALL PERSONAL BELONGINGS, DISCHARGE INSTRUCTIONS/PRESCRIPTIONS AND FOLLOW UP INFORMATION. LEFT UNIT IN WHEELCHAIR AND WENT HOME VIA PRIVATE AUTO. NO SIGNS OF DISTRESS LEAVING FACILITY.
--- NOTE | 2018-08-12 04:27 | Discharge Summary ---
DEMURRAGE WORKER: Reddy Harding MD. FINAL DIAGNOSIS: Prostate cancer, status post bilateral pelvic lymph node dissection done by Dr. Reddy Harding. SUMMARY: The patient is a pleasant 78 years old male, status post bilateral pelvic lymph node dissection due to prostate cancer. The patient has [place] 8 prostate cancer, baseline COPD, obstructive sleep apnea, depression, admitted to the medical service after the procedure done by Dr. Reddy Harding. The patient was stable. Electrolyte corrected. The patient continued with postoperative care. Irrigation of the Bonds catheter. The patient is stable. The patient went into atrial fibrillation while he was on the medical floor. The patient was seen by Dr. Eliseo White. Postoperative atrial fibrillation, Adenocard 6 mg IV one time given. Postoperative atrial fibrillation, the patient was given IV Cardizem. He converted to normal sinus rhythm. The patient was stable. The echocardiogram was done. The patient's ejection fraction of 55%. He continued with the sinus rhythm. Oral Cardizem was given. The patient is otherwise stable. He was subsequently discharged home on diltiazem. The patient was stable. The patient will follow up with Dr. Eliseo White outpatient for any adjustment. DISCHARGE MEDICATIONS: Coreg 6.25 mg b.i.d., Cardizem 30 mg b.i.d. and home medication adjustment was done. FOLLOWUP: The patient to follow up with Dr. Reddy Harding in approximately 1 to 2 weeks. Hernando Joseph MD JT/MODL /[id number]
--- NOTE | 2018-09-10 13:54 | Operative Report ---
DATE OF PROCEDURE: 07/20/2018 SURGEON: Reddy Harding MD PREOPERATIVE DIAGNOSES: 1. Prostate cancer. 2. Benign prostate hyperplasia. POSTOPERATIVE DIAGNOSES: 1. Prostate cancer. 2. Benign prostate hyperplasia. 3. Bladder diverticulum. OPERATION PERFORMED: 1. Cystourethroscopy (separately performed to evaluate the bladder outlet). 2. Bilateral pelvic lymphadenectomy (separately performed for the staging of the prostate cancer). ANESTHESIA: General. COMPLICATIONS: None. CLINICAL SUMMARY: Henry Bolivar is a 78-year-old man with high-grade prostate cancer. He has [place] eight cancer. He is status post transurethral resection of the prostate. He was brought for the above procedures. He was aware of the risks of bleeding, infection, and injury to adjacent structures, need for additional procedures and elected to proceed. OPERATIVE PROCEDURE IN DETAIL: Informed consent was verified. Henry Bolivar was properly identified, taken to the operating room, placed on the operating table in supine position. Anesthesia was uneventfully begun. The patient's abdomen and genitalia were shaved, prepared, and draped in usual sterile fashion. A flexible cystourethroscope was utilized and it was entered the urethra under direct vision it was guided down, unremarkable urethra through normal sphincteric region, through the prostate bed was significant for a wide open prostate bed status post transurethral resection of the prostate. This complete re-epithelialization and complete healing following transurethral resection. Panendoscopy of the urinary bladder revealed trabeculations. There was also small diverticulum noted. There were no tumors, no stones, and no suspicious lesions. The cystoscope was withdrawn. Bonds catheter was placed. A midline infraumbilical incision was made, carried through all layers of the abdominal wall. We developed the extraperitoneal space. A Roberson Robbin retractor was utilized. We performed bilateral pelvic lymphadenectomy. Margins of resection included Otilio's ligament distally, the bifurcation of the common iliac vessels proximally, the external iliac vein anterolaterally, and the obturator fossa posteromedially. Hemoclips were utilized to control lymphatic and vascular channels. Copious irrigation was performed bilaterally. A Ayad drain was placed through separate stab incision, secured to the skin with nylon suture. The patient's incision was approximated utilizing heavy Vicryl suture. The rectus muscles were loosely approximated in an interrupted fashion. The fascia was approximated with heavy Vicryl suture in interrupted [id number] fashion. The skin was approximated with skin nirmal. Copious irrigation was performed at each layer of the closure. Sterile dressings were applied. The patient was uneventfully reversed from anesthesia and taken to recovery room in stable condition. There were no complications at the end of the procedure. The patient tolerated the procedure well. Sponge, needle, and instrument counts were of course correct x2 at the end of the case. For estimated blood loss, please refer to the anesthetic record. We will proceed with routine postoperative care and of course ongoing urological followup. MD LOYDA Prince/MAIK /[id number]
== END 2018-07-24 16:28 | disposition home or self-care (01) | DRG 715 ==
LOC: OR 12:15 → MED/SURG 17:48 → ICU 07-21 18:16 → MED/SURG 07-22 17:44
PROVIDERS: ADMIT Internal Medicine; ATTEND Internal Medicine
PROC: 0TJB8ZZ Inspection of Bladder, Via Natural or Artificial Opening Endoscopic (ICD-10-PCS; 2018-07-20)
PROC: 07BJ0ZZ Excision of Left Inguinal Lymphatic, Open Approach (ICD-10-PCS; principal; 2018-07-20 15:33)
PROC: 07BH0ZZ Excision of Right Inguinal Lymphatic, Open Approach (ICD-10-PCS; 2018-07-20 15:33)
DX: C61 Malignant neoplasm of prostate (principal); I97.191 Other postprocedural cardiac functional disturbances following other surgery; I48.0 Paroxysmal atrial fibrillation; Z79.01 Long term (current) use of anticoagulants; J44.9 Chronic obstructive pulmonary disease, unspecified; G47.33 Obstructive sleep apnea (adult) (pediatric); F32.9 Major depressive disorder, single episode, unspecified; I49.3 Ventricular premature depolarization; N40.0 Benign prostatic hyperplasia without lower urinary tract symptoms; I10 Essential (primary) hypertension; Z90.49 Acquired absence of other specified parts of digestive tract; G89.29 Other chronic pain; K59.00 Constipation, unspecified
CPT/HCPCS: 36415; 51700; 80048; 85025; 86850; 86900; 88304; 88307; 93005; 93306; 94660; 96367; 96376; J0153; J0690; J1100; J1650; J2001; J2250; J2370; J2405; J2765; J3010; J7030; J7040

== ENCOUNTER 2018-07-31 18:27 | Emergency (ER) | payer MEDICARE ==
[~2018-07-31] VITALS: Ht 172.7 cm; Wt 90.7 kg
[~2018-07-31 18:27] MED LIST changes: +CARDIZEM60 MG PO; +ULTRAM50 MG PO
== END 2018-07-31 19:10 | disposition home or self-care (01) ==
LOC: FSED 18:27
DX: Z48.01 Encounter for change or removal of surgical wound dressing (principal); I10 Essential (primary) hypertension; J44.9 Chronic obstructive pulmonary disease, unspecified; Z87.891 Personal history of nicotine dependence
CPT/HCPCS: 99283

== ENCOUNTER 2019-01-14 18:49 | Emergency (ER) | payer MEDICARE ==
[~2019-01-14] VITALS: Ht 172.7 cm; Wt 92.1 kg
--- OUTSIDE RECORDS SUMMARY | 2019-01-14 18:54 | XMS REPORT | Summary of Care ---
Author Author [facility] - Health Organization [facility] - Health Address Unknown Phone Unavailable Care Team Providers Care Gasateria Attendant Name Role Phone Sridevi Real PCP Reason for Referral * (Routine) Referred By Contact Referred To Contact Status Reason Specialty Diagnoses / Procedures Chris Perez MD [address] [place] [id number] New Request IM-INTERVENTIONA Diagnoses L CARDIOLOGY Acute on chronic congestive heart failure, unspecified heart failure type P rocedures Discharge Follow-Up: Specialty Service IM-INTERVENTIONAL CARDIOLOGY; 2 Weeks * (Routine) Referred By Contact Referred To Contact Status Reason Specialty Diagnoses / Procedures Leticia Antoine, BUMPER OPERATOR [address] [place] [address] Sridevi Real [address] [place] [address] New Request Diagnoses Acute on chronic congestive heart failure, unspecified heart failure type P rocedures Discharge Follow-up: PCP SRIDEVI REAL; 2 Weeks * (Routine) Referred By Contact Referred To Contact Status Reason Specialty Diagnoses / Procedures Arias Moses MD [address] [place] [address] New Request Vascular Surgery Procedures BILATERAL VENOUS DUPLEX LOWER EXTREMITY BY VASCULAR LAB * (Routine) Referred By Contact Referred To Contact Status Reason Specialty Diagnoses / Procedures Arias Moses MD [address] [place] [phone] New Request Vascular Surgery Procedures BILATERAL VENOUS DUPLEX LOWER EXTREMITY BY VASCULAR LAB * MRI/CAT Scan (STAT) Referred By Contact Referred To Contact Status Reason Specialty Diagnoses / Procedures Jose Alejandro Miguel, DO [address] [place] [address] New Request Diagnostic Diagnoses Radiology SOB (shortness of breath) P rocedures CT ANGIOGRAM CHEST * Radiology Services (STAT) Referred By Contact Referred To Contact Status Reason Specialty Diagnoses / Procedures Jose Alejandro Miguel, DO [address] [place] [address] New Request Diagnostic Diagnoses Radiology SOB (shortness of breath) P rocedures Chest 1 View * MRI/CAT Scan (STAT) Referred By Contact Referred To Contact Status Reason Specialty Diagnoses / Procedures Jose Alejandro Miguel, DO [address] [place] [address] New Request Diagnostic Diagnoses Radiology SOB (shortness of breath) P rocedures CT ANGIOGRAM CHEST * Radiology Services (STAT) Referred By Contact Referred To Contact Status Reason Specialty Diagnoses / Procedures Jose Alejandro Miguel, DO [address] [place] [address] New Request Diagnostic Diagnoses Radiology SOB (shortness of breath) P rocedures Chest 1 View Reason for Visit * Reason Comments Shortness of Breath ULTRASOUND * Auth/Cert Referred By Contact Referred To Contact Status Reason Specialty Diagnoses / Procedures [facility] Emergency Dept [address] [place] [address] Emergency Medicine Encounter Details Care Team Description Date Type Department Jose Alejandro Miguel, [address] [place] [address] [phone] Geina Rivas MD [address] [place] [address] CHF exacerbation 10/25/2018 [facility] - Encounter Medicine/Surgery CLC 4A 10/27/[address] [place] [phone] Allergies No Known Allergiesdocumented as of this encounter (statuses as of 10/27/2018) Medications End Date Status Medication Sig Dispensed Refills Start Date Active finasteride 5 mg tablet Take 5 mg by 3 mouth daily. 9 Active tamsulosin 0.4 mg 24 hr Take 0.4 mg 0 capsule by mouth 9 daily. Active lisinopril 2.5 mg tablet Take 2.5 mg 1 by mouth 9 daily. Active ANORO ELLIPTA 62.5-25 Inhale 1 Puff 0 mcg/actuation inhalation daily. 9 disk Active albuterol (VENTOLIN HFA) Inhale 2 0 90 mcg/actuation inhaler Puffs every 6 (six) hours as needed for Wheezing or Shortness of Breath. 11/03/2018 Active predniSONE 20 mg Take 1 tablet 7 tablet 0 tabletIndications: Acute by mouth 9 on chronic congestive daily for 7 heart failure, days. unspecified heart failure type 11/26/2018 Active furosemide 40 mg Take 1 tablet 30 tablet 0 tabletIndications: Acute by mouth 9 on chronic congestive daily for 30 heart failure, days. unspecified heart failure type 10/27/2018 Discontinued azithromycin (ZITHROMAX Take 1 tablet 1 Package 0 Z-NEVAEH) 250 mg by mouth 9 tabletIndications: COPD daily. Take exacerbation 500 mg day 1, then 250 mg days 2 to 5. documented as of this encounter (statuses as of 10/27/2018) Active Problems Problem Noted Date CHF (congestive heart failure) 10/26/2018 CHF exacerbation 10/25/2018 documented as of this encounter (statuses as of 10/27/2018) Social History Date Tobacco Use Types Packs/Day Years Used Never Assessed Sex Assigned at Date Recorded Not on file Industry Job Start Date Occupation Not on file Not on file Not on file Travel End Travel History Travel Start No recent travel history available. documented as of this encounter Last Filed Vital Signs Reading Time Taken Comments Vital Sign 149/81 10/27/2018 12:00 PM CDT Blood Pressure 79 10/27/2018 12:00 PM CDT Pulse 36.2 C (97.2 F) 10/27/2018 12:00 PM CDT Temperature 18 10/27/2018 12:00 PM CDT Respiratory Rate 91% 10/27/2018 12:00 PM CDT Oxygen Saturation - - Inhaled Oxygen Concentration 88.8 kg (195 lb 11.2 oz) 10/25/2018 10:19 AM CDT Weight 172.7 cm (5' 8") 10/25/2018 10:19 AM CDT Height 29.76 10/25/2018 10:19 AM CDT Body Mass Index documented in this encounter Progress Notes * Leticia Antoine FNP - 10/26/2018 2:15 PM CDT CLS Progress Note Date of Service: 10/26/2018 14:15 Chief Complaint: SOB SUBJECTIVE: Feels better Less sob Denies fever or chills. PHYSICAL EXAM: Vitals: 10/26/18 0710 10/26/18 0720 10/26/18 0800 10/26/18 1200 BP: (!) 140/64 137/63 Pulse: 71 84 78 75 Resp: 18 18 18 18 Temp: 36.2 C (97.2 F) 36.8 C (98.2 F) TempSrc: Tympanic Tympanic SpO2: 90% 95% 94% 93% Weight: Height: O2 Sat: SpO2 readings for the past 24 hrs: SpO2 10/25/18 1559 96 % 10/25/18 1609 96 % 10/25/18 2101 96 % 10/25/18 2110 98 % 10/26/18 0000 92 % 10/26/18 0400 91 % 10/26/18 0710 90 % 10/26/18 0720 95 % 10/26/18 0800 94 % 10/26/18 1200 93 % Intake/Output Summary (Last 24 hours) at 10/26/2018 1415 Last data filed at 10/26/2018 1200 Gross per 24 hour Intake Output 1950 ml Net -1950 ml General: alert and oriented; no apparent distress HEENT: pupils equal, round; extraocular movements intact; oropharynx clear; mois t mucous membranes Lungs: clear to auscultation bilaterally, no crackles, no wheezes, cough is stro ng and effective Cardio: regular rate and rhythm, no murmurs, no gallops Abdomen: soft; non-tender; non-distended; normoactive bowel sounds Extremities: no cyanosis, clubbing or edema LABS/IMAGING - reviewed, pertinent results as below: Recent Results (from the past 48 hour(s)) Basic Metabolic Panel (NA, K, CL, CO2, GLUCOSE, BUN, CREATININE, CA) Collection Time: 10/25/18 10:52 AM Result Value Ref Range NA 140 135 - 145 mmol/L K 4.6 3.5 - 5.0 mmol/L CL 106 98 - 108 mmol/L CO2 TOTAL 26 23 - 31 mmol/L AGAP 8 2 - 16 BUN 37 (H) 7 - 23 mg/dL GLUCOSE 94 70 - 110 mg/dL CREATININE 1.20 0.60 - 1.25 mg/dL CALCIUM 9.6 8.6 - 10.6 mg/dL eGFR Calculation (Non-) 58.6 mL/min/1.73m2 eGFR Calculation () 71.0 mL/min/1.73m2 Hepatic Function Panel (ALB, T.PRO, BILI T, BU/BC, ALT, AST, ALK PHOS) Collection Time: 10/25/18 10:52 AM Result Value Ref Range TOTAL BILI 0.7 0.1 - 1.1 mg/dL BILI UNCON 0.4 0.1 - 1.1 mg/dL BILI CONJ 0.0 0.0 - 0.3 mg/dL T PROTEIN 6.7 6.3 - 8.2 g/dL ALBUMIN 3.7 3.5 - 5.0 g/dL ALK PHOS 59 34 - 122 U/L ALT(SGPT) 146 (H) 9 - 51 U/L AST(SGOT) 211 (H) 13 - 40 U/L Troponin I Collection Time: 10/25/18 10:52 AM Result Value Ref Range TROPONIN I 0.012 <=0.034 ng/mL N-TERMINAL PRO-BNP Collection Time: 10/25/18 10:52 AM Result Value Ref Range NT-proBNP 3,540 (H) <=450 pg/mL BLOOD CULTURE SCREEN Collection Time: 10/25/18 10:52 AM Result Value Ref Range Blood Culture-Aerobic Culture In Progress No growth Blood Culture-Anaerobic Culture In Progress No growth BLOOD CULTURE SCREEN Collection Time: 10/25/18 10:52 AM Result Value Ref Range Blood Culture-Aerobic Culture In Progress No growth Blood Culture-Anaerobic Culture In Progress No growth Urinalysis Collection Time: 10/25/18 2:46 PM Result Value Ref Range APPEARANCE Clear Clear COLOR Colorless (A) Yellow PH 5.0 4.8 - 8.0 SP GRAVITY 1.013 1.003 - 1.030 GLU U QUAL Normal Normal BLOOD 1+ (A) Negative KETONES Negative Negative PROTEIN Negative Negative UROBILIN Normal Normal BILIRUBIN Negative Negative NITRITE Negative Negative LEUK JASON Negative Negative RBC/HPF 1 0 - 3 HPF WBC/HPF 1 0 - 5 HPF BACTERIA Negative Negative Basic Metabolic Panel (NA, K, CL, CO2, GLUCOSE, BUN, CREATININE, CA) Collection Time: 10/26/18 4:37 AM Result Value Ref Range NA 139 135 - 145 mmol/L K 4.4 3.5 - 5.0 mmol/L CL 104 98 - 108 mmol/L CO2 TOTAL 25 23 - 31 mmol/L AGAP 10 2 - 16 BUN 35 (H) 7 - 23 mg/dL GLUCOSE 163 (H) 70 - 110 mg/dL CREATININE 1.10 0.60 - 1.25 mg/dL CALCIUM 9.9 8.6 - 10.6 mg/dL eGFR Calculation (Non-) 64.7 mL/min/1.73m2 eGFR Calculation () 78.5 mL/min/1.73m2 CBC WITH DIFFERENTIAL Collection Time: 10/26/18 4:37 AM Result Value Ref Range WBC 6.77 4.20 - 10.70 10*3/L RBC 3.86 (L) 4.26 - 5.52 10*6/L HGB 12.0 (L) 12.2 - 16.4 g/dL HCT 36.5 (L) 38.4 - 49.3 % MCV 94.6 81.7 - 95.6 fL MCH 31.1 26.1 - 32.7 pg MCHC 32.9 31.2 - 35.0 g/dL RDW-SD 45.5 38.5 - 51.6 fL RDW-CV 13.2 12.1 - 15.4 % PLT 158 150 - 328 10*3/L MPV 9.6 (L) 9.8 - 13.0 fL IPF % 2.1 1.2 - 10.7 % NRBC/100 WBC 0.0 0.0 - 10.0 /100 WBCs NRBC x10^3 <0.01 10*3/L GRAN MAT (NEUT) % 87.0 % IMM GRAN % 0.30 % LYMPH % 10.3 % MONO % 2.4 % EOS % 0.0 % BASO % 0.0 % GRAN MAT x10^3(ANC) 5.89 1.99 - 6.95 10*3/uL IMM GRAN x10^3 <0.03 0.00 - 0.06 10*3/uL LYMPH x10^3 0.70 (L) 1.09 - 3.23 10*3/uL MONO x10^3 0.16 (L) 0.36 - 1.02 10*3/uL EOS x10^3 <0.03 (L) 0.06 - 0.53 10*3/uL BASO x10^3 <0.03 0.01 - 0.09 10*3/uL Chest 1 View Result Date: 10/25/2018 Cardiomegaly and mild atelectasis in both lung bases. RL: [id number] AFC: [id number] Ct Angiogram Chest Result Date: 10/25/2018 1. No pulmonary embolus. 2. No thoracic aortic aneurysm or dissection. 3. Mild a telectasis in both lung bases. 4. Mild cardiomegaly. No pneumonia. RL: [id number] AF C: [id number] CURRENT MEDICATIONS - reviewed. Current Facility-Administered Medications Medication Dose Route Frequency Last Rate Last Dose acetaminophen (TYLENOL) tablet 650 mg 650 mg Oral Q4HPRN enoxaparin (LOVENOX) injection 40 mg 40 mg Subcutaneous DAILY 40 mg at 0845 furosemide (LASIX) injection 20 mg 20 mg Slow IV Push Q12H 20 mg at 10/26 0845 ipratropium-albuterol (DUONEB) 0.5 mg-3 mg(2.5 mg base)/3 mL nebulizer solut ion 3 mL 3 mL Inhalation QID Stopped at 10/26/18 1130 levoFLOXacin in D5W (LEVAQUIN) 500 mg/100 mL Piggyback 500 mg 500 mg IV Pig gyback Q24H ABX 500 mg at 10/25/18 1719 methylPREDNISolone sodium succinate (SOLU-MEDROL) 40 mg in NaCl 0.9% (NS) pi ggyback 40 mg IV Piggyback Q8H 40 mg at 10/26/18 1334 ASSESSMENT/PLAN Henry Bolivar is a 78 year old male admitted to the hospital with: COPD exacerbation CHF exacerbation? Pending ECHO R/O LL ext DVT Transaminitis H/O prostate cancer WAGNER PLAN: ABX for 5 days Steroid Neb treatment as needed Keep SAT> 92% Echocardiogram Cardiology consult Lasix Lower ext doppler DVT prophylaxis YULIYA Cottrell [phone] Associated attestation - Genia Rivas MD - 10/26/2018 3:49 PM CDT I personally examined the patient on 10/26/2018 and agree with Leticia Antoine NP's note as written . I actively participated in the decision-making process. * Julissa Alexis RN - 10/26/2018 11:34 AM CDT Lissette, Genia Rivas MD, after reviewing this case with the Salon Supervisor, I conc ur this case is appropriate for inpatient admission. The change to inpatient adm ission is based on the level of care this patient is receiving, medical necessit y, risks associated and the expected duration of stay. The inpatient admission o rder has been entered. Julissa Alexis RN, MSN Utilization Review Nurse documented in this encounter Plan of Treatment Date/Time Name Type Priority Associated Diagnoses 10/25/2018 10:52 AM CDT BLOOD CULTURE SCREEN LAB STAT SOB (shortness of breath) 10/25/2018 10:52 AM CDT BLOOD CULTURE SCREEN LAB STAT SOB (shortness of breath) Order Schedule Name Type Priority Associated Diagnoses STAT for 1 Occurrences starting 10/25/2018 until 10/25/2018 CBC with Differential LAB Routine SOB (shortness of breath) ONCE for 1 Occurrences starting 10/25/2018 until 10/25/2018 aPTT LAB Routine SOB (shortness of breath) STAT for 1 Occurrences starting 10/25/2018 until 10/25/2018 Prothrombin Time (PT) / LAB STAT SOB (shortness of breath) INR Once for 1 Occurrences starting 10/25/2018 until 10/25/2018 CBC WITH DIFFERENTIAL LAB Routine SOB (shortness of breath) Health Maintenance Due Date Last Done Comments DTaP,Tdap,and Td Vaccines 02/05/1959 (1 - Tdap) Zoster Recombinant 02/05/1990 Vaccine (SHINGRIX) (1 of 2) Medicare Wellness Visit 02/05/2005 PNEUMOCOCCAL VACCINES 65+ 02/05/2005 (1 of 2 - PCV13) INFLUENZA VACCINE (#1) 2018 documented as of this encounter Procedures Comments Procedure Name Priority Date/Time Associated Diagnosis CBC WITH DIFFERENTIAL Routine 10/27/2018 4:15 AM CDT CBC WITH DIFF Routine 10/27/2018 4:15 AM CDT COMP. METABOLIC PANEL Routine 10/27/2018 (50382) 4:15 AM CDT CBC WITH DIFFERENTIAL Routine 10/26/2018 4:37 AM CDT CBC WITH DIFF Routine 10/26/2018 4:37 AM CDT BASIC METABOLIC PANEL Routine 10/26/2018 (NA, K, CL, CO2, GLUCOSE, 4:37 AM CDT BUN, CREATININE, CA) URINALYSIS STAT 10/25/2018 SOB (shortness of breath) 2:46 PM CDT XR CHEST 1 VW STAT 10/25/2018 SOB (shortness of breath) 11:[address] ANGIOGRAM CHEST STAT 10/25/2018 SOB (shortness of breath) 11:49 AM CDT N-TERMINAL PRO-BNP STAT 10/25/2018 SOB (shortness of breath) 10:52 AM CDT BASIC METABOLIC PANEL STAT 10/25/2018 SOB (shortness of breath) (NA, K, CL, CO2, GLUCOSE, 10:52 AM CDT BUN, CREATININE, CA) HEPATIC FUNCTION PANEL STAT 10/25/2018 SOB (shortness of breath) ([id number]) (ALB,T.PRO,BILI 10:52 AM CDT T,BU/BC,ALT,AST,ALK PHOS) TROPONIN I STAT 10/25/2018 SOB (shortness of breath) 10:52 AM CDT EKG-12 LEAD STAT 10/25/2018 10:40 AM CDT EKG-12 LEAD Routine 10/25/2018 10:18 AM CDT documented in this encounter Results * CBC WITH DIFFERENTIAL (10/27/2018 4:15 AM CDT) WBC 11.78 (H) 4.20 - 10.70 [facility] 10*3/L [facility] RBC 3.80 (L) 4.26 - 5.52 10*6/L [facility] HGB 11.7 (L) 12.2 - 16.4 g/dL [facility] HCT 36.3 (L) 38.4 - 49.3 % [facility] MCV 95.5 81.7 - 95.6 fL [facility] MCH 30.8 26.1 - 32.7 pg [facility] MCHC 32.2 31.2 - 35.0 g/dL [facility] RDW-SD 46.9 38.5 - 51.6 fL [facility] RDW-CV 13.3 12.1 - 15.4 % [facility] PLT 165 150 - 328 10*3/L [facility] MPV 9.2 (L) 9.8 - 13.0 fL [facility] NRBC/100 WBC 0.0 0.0 - 10.0 /100 WBCs [facility] NRBC x10^3 <0.01 10*3/L [facility] GRAN MAT (NEUT) 89.8 % [facility] % [facility] IMM GRAN % 1.10 % [facility] LYMPH % 5.8 % [facility] MONO % 3.2 % [facility] EOS % 0.0 % [facility] BASO % 0.1 % [facility] GRAN MAT 10.58 (H) 1.99 - 6.95 10*3/uL [facility] x10^3(ANC) [facility] IMM GRAN x10^3 0.13 (H) 0.00 - 0.06 10*3/uL [facility] LYMPH x10^3 0.68 (L) 1.09 - 3.23 10*3/uL [facility] MONO x10^3 0.38 0.36 - 1.02 10*3/uL [facility] EOS x10^3 <0.03 (L) 0.06 - 0.53 10*3/uL [facility] BASO x10^3 <0.03 0.01 - 0.09 10*3/uL [facility] Specimen Blood - ARM, LEFT Performing Organization Address City/State/Zipcode Phone Number [facility] CLIA: [id number], [address] [place], [place] [id number] [facility] * COMP. METABOLIC PANEL ([id number]) (10/27/2018 4:15 AM CDT) NA 138 135 - 145 mmol/L [facility] K 4.6 3.5 - 5.0 mmol/L [facility] CL 102 98 - 108 mmol/L [facility] CO2 TOTAL 28 23 - 31 mmol/L [facility] AGAP 8 2 - 16 [facility] BUN 48 (H) 7 - 23 mg/dL [facility] GLUCOSE 144 (H) 70 - 110 mg/dL [facility] CREATININE 1.28 (H) 0.60 - 1.25 mg/dL [facility] TOTAL BILI 0.3 0.1 - 1.1 mg/dL [facility] CALCIUM 9.9 8.6 - 10.6 mg/dL [facility] T PROTEIN 7.1 6.3 - 8.2 g/dL [facility] ALBUMIN 3.8 3.5 - 5.0 g/dL [facility] ALK PHOS 60 34 - 122 U/L [facility] ALT(SGPT) 102 (H) 9 - 51 U/L [facility] AST(SGOT) 54 (H) 13 - 40 U/L [facility] eGFR 54.4 mL/min/1.73m2 [facility] Calculation [facility] ([facility]) eGFR 65.9 mL/min/1.73m2 [facility] Calculation [facility] Specimen Blood - ARM, LEFT Narrative Performed At Association of Glomerular Filtration Rate (GFR) and Staging of Kidney Disease* [facility] + + + [facility] | GFR (mL/min/1.73 m2)| With Kidney Damage|Without Kidney Damage CAMPUS + + + + |>90|Stage one| Normal + + + + |60-89|Stage two| Decreased GFR + + + + |30-59|Stage three| Stage three + + + + |15-29|Stage four | Stage four + + + + |<15 (or dialysis)|Stage five | Stage five + + + + *Each stage assumes the associated GFR level has been in effect for at least three months.Stages 1 to 5, with or without kidney disease, indicate chronic kidney disease. Notes: Determination of stages one and two (with eGFR >59mL/min/1.73 m2) requires estimation of kidney damage for at least three months as defined by structural or functional abnormalities of the kidney, manifested by either: Pathological abnormalities or Markers of kidney damage (including abnormalities in the composition of the blood or urine or abnormalities in imaging tests). Performing Organization Address City/State/Zipcode Phone Number [facility] CLIA: [id number], [address] [place], [place] [address] [facility] * CBC WITH DIFFERENTIAL (10/26/2018 4:37 AM CDT) WBC 6.77 4.20 - 10.70 [facility] 10*3/L [facility] RBC 3.86 (L) 4.26 - 5.52 10*6/L [facility] HGB 12.0 (L) 12.2 - 16.4 g/dL [facility] HCT 36.5 (L) 38.4 - 49.3 % [facility] MCV 94.6 81.7 - 95.6 fL [facility] MCH 31.1 26.1 - 32.7 pg [facility] MCHC 32.9 31.2 - 35.0 g/dL [facility] RDW-SD 45.5 38.5 - 51.6 fL [facility] RDW-CV 13.2 12.1 - 15.4 % [facility] PLT 158 150 - 328 10*3/L [facility] MPV 9.6 (L) 9.8 - 13.0 fL [facility] IPF % 2.1Comment: Platelet count 1.2 - 10.7 % [facility] measured by fluorescence [facility] NRBC/100 WBC 0.0 0.0 - 10.0 /100 WBCs [facility] NRBC x10^3 <0.01 10*3/L [facility] GRAN MAT (NEUT) 87.0 % [facility] % [facility] IMM GRAN % 0.30 % [facility] LYMPH % 10.3 % [facility] MONO % 2.4 % [facility] EOS % 0.0 % [facility] BASO % 0.0 % [facility] GRAN MAT 5.89 1.99 - 6.95 10*3/uL [facility] x10^3(ANC) [facility] IMM GRAN x10^3 <0.03 0.00 - 0.06 10*3/uL [facility] LYMPH x10^3 0.70 (L) 1.09 - 3.23 10*3/uL [facility] MONO x10^3 0.16 (L) 0.36 - 1.02 10*3/uL [facility] EOS x10^3 <0.03 (L) 0.06 - 0.53 10*3/uL [facility] BASO x10^3 <0.03 0.01 - 0.09 10*3/uL [facility] Specimen Blood - ARM, LEFT Performing Organization Address City/State/Zipcode Phone Number [facility] CLIA: [id number], [address] [place] [address] [facility] * Basic Metabolic Panel (NA, K, CL, CO2, GLUCOSE, BUN, CREATININE, CA) (10/26/2018 4:37 AM CDT) NA 139 135 - 145 mmol/L [facility] K 4.4 3.5 - 5.0 mmol/L [facility] CL 104 98 - 108 mmol/L [facility] CO2 TOTAL 25 23 - 31 mmol/L [facility] AGAP 10 2 - 16 [facility] BUN 35 (H[facility] 7 - 23 mg/dL [facility] GLUCOSE 163 (H[facility] 70 - 110 mg/dL [facility] CREATININE 1.10 0.60 - 1.25 mg/dL [facility] CALCIUM 9.9 8.6 - 10.6 mg/dL [facility] eGFR 64.7 mL/min/1.73m2 [facility] Calculation [facility] ([facility] eGFR 78.5 mL/min/1.73m2 [facility] Calculation [facility] ([facility]) Specimen Blood - ARM, LEFT Narrative Performed At [facility] Glomerular Filtration Rate (GFR) and Staging of Kidney Disease* [facility] + + + + [facility] | GFR (mL/min/1.73 m2)| With Kidney Damage|Without Kidney Damage [place] + + + + |>90|Stage one| Normal + + + + |60-89|Stage two| Decreased GFR + + + + |30-59|Stage three| Stage three + + + + |15-29|Stage four | Stage four + + + + |<15 (or dialysis)|Stage five | Stage five + + + + *Each stage assumes the associated GFR level has been in effect for at least three months.Stages 1 to 5, with or without kidney disease, indicate chronic kidney disease. Notes: Determination of stages one and two (with eGFR >59mL/min/1.73 m2) requires estimation of kidney damage for at least three months as defined by structural or functional abnormalities of the kidney, manifested by either: Pathological abnormalities or Markers of kidney damage (including abnormalities in the composition of the blood or urine or abnormalities in imaging tests). Performing Organization Address [facility] Phone Number [facility] CLIA: [id number], [address] [place], [place] [id number] [facility] * Urinalysis (10/25/2018 2:46 PM CDT) APPEARANCE Clear Clear [facility] COLOR Colorless (A) Yellow [facility] PH 5.0 4.8 - 8.0 [facility] SP GRAVITY 1.013 1.003 - 1.030 [facility] GLU U QUAL Normal Normal [facility] BLOOD 1+ (A) Negative [facility] KETONES Negative Negative [facility] PROTEIN Negative Negative [facility] UROBILIN Normal Normal [facility] BILIRUBIN Negative Negative [facility] NITRITE Negative Negative [facility] LEUK JASON Negative Negative [facility] RBC/HPF 1 0 - 3 HPF [facility] WBC/HPF 1 0 - 5 HPF [facility] BACTERIA Negative Negative [facility] Specimen Urine - URINE, CLEAN CATCH Performing Organization Address [facility] Phone Number [facility] CLIA: [id number], [address] [place] [address] [facility] * Chest 1 View (10/25/2018 11:50 AM CDT) Specimen Impressions Performed At Cardiomegaly and mild atelectasis in both lung bases. PACS/VR/DOSE RL: [id number] AFC: [id number] Narrative Performed At Ordering Physician: JOSE ALEJANDRO MIGUEL PACS/VR/DOSE Clinical Indication: sob Additional Clinical Information: Comparison: None Technique: Portable chest obtained at 1150 hours Findings: There is been previous cervical fusion. The left shoulder prosthesis. There is mild persistent both lung bases. There is mild cardiomegaly. Procedure Note [facility], Radiant Results Inft User - 10/25/2018 2:15 PM CDT Ordering Physician: JOSE ALEJANDRO MIGUEL Clinical Indication: sob Additional Clinical Information: Comparison: None Technique: Portable chest obtained at 1150 hours Findings: There is been previous cervical fusion. The left shoulder prosthesis. There is mild persistent both lung bases. There is mild cardiomegaly. IMPRESSION Cardiomegaly and mild atelectasis in both lung bases. RL: [id number] AFC: [id number] Performing Organization Address City/State/Zipcode Phone Number PACS/VR/DOSE * CT ANGIOGRAM CHEST (10/25/2018 11:49 AM CDT) Specimen Impressions Performed At 1. No pulmonary embolus. PACS/VR/DOSE 2. No thoracic aortic aneurysm or dissection. 3. Mild atelectasis in both lung bases. 4. Mild cardiomegaly. No pneumonia. RL: [id number] AFC: [id number] Narrative Performed At Ordering Physician: JOSE ALEJANDRO MIGUEL PACS/VR/DOSE Clinical Indication: PE suspected, high pretest prob , chest pain Additional Clinical Information: Comparison: None Technique: The exam is performed with axial postcontrast images with 3-D MIPS reconstruction.The exam was performed using the ALARAprinciples. Interpretation based on extrapolated NASCET criteria. . Findings: The thoracic aorta is normal in diameter. There is nonspecific superior mediastinal lymphadenopathy. There are no filling defects in the pulmonary arteries. There is mild cardiomegaly. Upper liver spleen enhances normally. No adrenal mass. The lung windows demonstrates nodular densities in both lower lobes. There is mild groundglass infiltrate or atelectasis in both upper lobes with scattered lung cysts Procedure Note [facility], Radiant Results Inft User - 10/25/2018 2:14 PM CDT Ordering Physician: JOSE ALEJANDRO MIGUEL Clinical Indication: PE suspected, high pretest prob , chest pain Additional Clinical Information: Comparison: None Technique: The exam is performed with axial postcontrast images with 3-D MIPS reconstruction. The exam was performed using the ALARA principles. Interpretation based on extrapolated NASCET criteria. . Findings: The thoracic aorta is normal in diameter. There is nonspecific superior mediastinal lymphadenopathy. There are no filling defects in the pulmonary arteries. There is mild cardiomegaly. Upper liver spleen enhances normally. No adrenal mass. The lung windows demonstrates nodular densities in both lower lobes. There is mild groundglass infiltrate or atelectasis in both upper lobes with scattered lung cysts IMPRESSION 1. No pulmonary embolus. 2. No thoracic aortic aneurysm or dissection. 3. Mild atelectasis in both lung bases. 4. Mild cardiomegaly. No pneumonia. RL: [id number] AFC: [id number] Performing Organization Address City/State/Zipcode Phone Number PACS/VR/DOSE * N-TERMINAL PRO-BNP (10/25/2018 10:52 AM CDT) NT-proBNP 3,540 (H) <=450 pg/mL [facility] Specimen Blood - ARM, RIGHT Narrative Performed At [facility] has been reported to cause a negative bias, interpret results relative to [facility] patient's use of biotin. [facility] Performing Organization Address [facility] Phone Number [facility] CLIA: [id number], [address] [place] [address] [facility] * Troponin I (10/25/2018 10:52 AM CDT) TROPONIN I 0.012 <=0.034 ng/mL [facility] Specimen Blood - ARM, RIGHT Narrative Performed At Equal or Less than 0.034 ng/ml---Normal [facility] Note: Cardiac troponin begins to rise 3-4 hours after the onset of ischemia. [facility] Repeat in 4-6 hours if the sample was drawn within 3-4 hours of the onset of the CAMPUS symptom and found normal. Between 0.035 and 0.120 ng/mL--- Borderline. Questionable myocardial injury or necrosis Note: Serial measurement may be necessary to confirm or exclude the diagnosis of myocardial injury or necrosis; Clinical correlation (symptoms, EKGs, imaging studies, and others) required; Repeat in 4-6 hours if clinically indicated. Equal or Higher than 0.121 ng/mL---Abnormal. Myocardial Injury or Necrosis Likely Biotin has been reported to cause a negative bias, interpret results relative to patient's use of biotin. Performing Organization Address City/[facility]/Zipcode Phone Number [facility] CLIA: [id number], [address] [place] [address] [facility] * Hepatic Function Panel (ALB, T.PRO, BILI T, BU/BC, ALT, AST, ALK PHOS) (10/25/2018 10:52 AM CDT) TOTAL BILI 0.7 0.1 - 1.1 mg/dL [facility] BILI UNCON 0.4 0.1 - 1.1 mg/dL [facility] BILI CONJ 0.0 0.0 - 0.3 mg/dL [facility] T PROTEIN 6.7 6.3 - 8.2 g/dL [facility] ALBUMIN 3.7 3.5 - 5.0 g/dL [facility] ALK PHOS 59 34 - 122 U/L [facility] ALT(SGPT) 146 (H) 9 - 51 U/L [facility] AST(SGOT) 211 (H) 13 - 40 U/L [facility] Specimen Blood - ARM, RIGHT Performing Organization Address City/State/Zipcode Phone Number [facility] CLIA: [id number], [address] [place] [address] [facility] * Basic Metabolic Panel (NA, K, CL, CO2, GLUCOSE, BUN, CREATININE, CA) (10/25/2018 10:52 AM CDT) NA 140 135 - 145 mmol/L [facility] K 4.6Comment: Slight hemolysis 3.5 - 5.0 mmol/L [facility] CL 106 98 - 108 mmol/L [facility] CO2 TOTAL 26 23 - 31 mmol/L [facility] AGAP 8 2 - 16 [facility] BUN 37 (H)Comment: Slight 7 - 23 mg/dL [facility] hemolysis [facility] GLUCOSE 94 70 - 110 mg/dL [facility] CREATININE 1.20 0.60 - 1.25 mg/dL [facility] CALCIUM 9.6 8.6 - 10.6 mg/dL [facility] eGFR 58.6 mL/min/1.73m2 [facility] Calculation SERVICES-[facility] ([facility]) eGFR 71.0 mL/min/1.73m2 [facility] Calculation SERVICES-[facility] ([facility]) Specimen Blood - ARM, RIGHT Narrative Performed At Association of Glomerular Filtration Rate (GFR) and Staging of Kidney Disease* [facility] + + + + SERVICES- [place] | GFR (mL/min/1.73 m2)| With Kidney Damage|Without Kidney Damage CAMPUS + + + + |>90|Stage one| Normal + + + + |60-89|Stage two| Decreased GFR + + + + |30-59|Stage three| Stage three + + + + |15-29|Stage four | Stage four + + + + |<15 (or dialysis)|Stage five | Stage five + + + + *Each stage assumes the associated GFR level has been in effect for at least three months.Stages 1 to 5, with or without kidney disease, indicate chronic kidney disease. Notes: Determination of stages one and two (with eGFR >59mL/min/1.73 m2) requires estimation of kidney damage for at least three months as defined by structural or functional abnormalities of the kidney, manifested by either: Pathological abnormalities or Markers of kidney damage (including abnormalities in the composition of the blood or urine or abnormalities in imaging tests). Performing Organization Address City/State/Zipcode Phone Number [facility] CLIA: [id number], [address] [place], [place] [address] [facility] documented in this encounter Visit Diagnoses Diagnosis SOB (shortness of breath) - Primary Shortness of breath COPD exacerbation Obstructive chronic bronchitis with exacerbation Acute on chronic congestive heart failure, unspecified heart failure type Bilateral leg edema Edema documented in this encounter Administered Medications Action Date Dose Rate Site Medication Order MAR Action acetaminophen (TYLENOL) tablet 650 mg 650 mg, Oral, Q4HPRN, Starting Fri10/26/18 at 0651, Until Discontinued, Routine, Pain (scale 1-3), Temp > 38.5 C 10/27/2018 7:43 AM CDT 40 mg Abdomen-SC enoxaparin (LOVENOX) injection 40 mg Given 40 mg, Subcutaneous, DAILY, First dose on Fri10/26/18 at 0900, Until Discontinued, Routine 40 mg Abdomen-SC Given 10/26/2018 8:45 AM CDT 10/27/2018 7:43 AM CDT 20 mg furosemide (LASIX) injection 20 mg Given 20 mg, Slow IV Push, Q12H, First dose on Fri10/25/18 at 2000, Until Discontinued, Routine 20 mg Given 10/26/2018 9:15 PM CDT 20 mg Given 10/26/2018 8:45 AM CDT 10/26/2018 3:32 PM CDT 3 mL ipratropium-albuterol (DUONEB) 0.5 mg-3 Given mg(2.5 mg base)/3 mL nebulizer solution 3 mL 3 mL, Inhalation, QID, First dose on [place] 10/25/18 at 1200, Until Discontinued, Routine 3 mL Given 10/26/2018 7:10 AM CDT 3 mL Given 10/25/2018 9:01 PM CDT 10/26/2018 2:40 PM CDT 500 mg levoFLOXacin in D5W (LEVAQUIN) 500 Given mg/100 mL Piggyback 500 mg 500 mg, IV Piggyback, Q24H ABX, First dose on [place] 10/25/18 at 1545, Until Discontinued, 100 mL, Reason for Anti-Infective: Empiric Therapy for Suspected Infection, Empiric Therapy Site: Respiratory, Duration of therapy: 7 days 500 mg Given 10/25/2018 5:19 PM CDT 10/27/2018 5:17 AM CDT 40 mg methylprednisolone sod succ Given (SOLU-MEDROL) injection 40 mg 40 mg, Slow IV Push, Q8H, First dose on Fri10/27/18 at 0600, Until Discontinued, Routine 10/26/2018 9:15 PM CDT 5 mg zolpidem (AMBIEN) tablet 5 mg Given 5 mg, Oral, QHSPRN, Starting 10/26/18 at 2043, Until Discontinued, Routine, Insomnia Action Date Dose Rate Site Medication Order MAR Action 10/25/2018 2:26 PM CDT 500 mg azithromycin (ZITHROMAX) 500 mg in NaCl Given 0.9% (NS) 250 mL VIAL-MATE IV piggyback 500 mg, IV Piggyback, ONCE, 1 dose, [place] 10/25/18 at 1300, 250 mL, Reason for Anti-Infective: Empiric Therapy for Suspected Infection, Empiric Therapy Site: Respiratory, Duration of therapy: 72 hours 10/25/2018 12:33 PM CDT 1,000 mg cefTRIAXone (ROCEPHIN) 1,000 mg in NaCl Given 0.9% (NS) 50 mL MINI-BAG 1,000 mg, IV Piggyback, ONCE, 1 dose, [place] 10/25/18 at 1300, 50 mL, Reason for Anti-Infective: Empiric Therapy for Suspected Infection, Empiric Therapy Site: Respiratory, Duration of therapy: 7 days 10/25/2018 12:33 PM CDT 40 mg furosemide (LASIX) injection 40 mg Given 40 mg, Slow IV Push, ONCE, 1 dose, [place] 10/25/18 at 1300, SIMEON 10/25/2018 11:40 AM CDT 100 mL iohexol (OMNIPAQUE 350 BULK-100 mL) Given injection 100 mL 100 mL, Intravenous, ONCE, 1 dose, [place] 10/25/18 at 1200, Routine 10/25/2018 10:53 AM CDT 125 mg methylprednisolone sod succ Given (SOLU-MEDROL) injection 125 mg 125 mg, Slow IV Push, ONCE, 1 dose, [place] 10/25/18 at 1145, STAT 10/26/2018 9:55 PM CDT 40 mg methylPREDNISolone sodium succinate Given (SOLU-MEDROL) 40 mg in NaCl 0.9% (NS) piggyback 40 mg, IV Piggyback, Q8H, First dose on 10/25/18 at 2200, Until Discontinued, 100 mL 40 mg Given 10/26/2018 1:34 PM CDT 40 mg Given 10/26/2018 5:03 AM CDT documented in this encounter Insurance Type Payer Benefit Subscriber ID Effective Phone Address Plan / Dates Group Medicare Adv HMO WE[employer] [place] [employer] [employer] [id number] 2018-P [place] PL[place] resent CLASSIC/[place] (Home) [place] [id number] documented as of this encounter
--- OUTSIDE RECORDS SUMMARY | 2019-01-14 18:54 | XMS REPORT | Summary of Care ---
Author Author [facility] - Health Organization [facility] - Health Address Unknown Phone Unavailable Care Team Providers Care Sawyer Helper Name Role Phone Trey Kemp PCP Reason for Visit * Reason Comments Transition Of Care Encounter Details Care Team Description Date Type Department Aliya Armando RN [phone] Transition Of Care 10/28/2018 Transition of [facility] Allergies No Known Allergiesdocumented as of this encounter (statuses as of 10/28/2018) Medications End Date Status Medication Sig Dispensed [...] heart failure, days. unspecified heart failure type documented as of this encounter (statuses as of 10/28/2018) Active Problems Problem Noted Date CHF (congestive heart failure) 10/26/2018 CHF exacerbation 10/25/2018 documented as of this encounter (statuses as of 10/28/2018) Social History Date Tobacco Use Types Packs/Day Years Used Never Assessed Sex Assigned at Date Recorded Not on file Industry Job Start Date Occupation Not on file Not on file Not on file Travel End Travel History Travel Start No recent travel history available. documented as of this encounter Last Filed Vital Signs Not on filedocumented in this encounter Plan of Treatment Health Maintenance Due Date Last Done Comments DTaP,Tdap,and Td Vaccines 02/05/1959 (1 - Tdap) Zoster Recombinant 02/05/1990 Vaccine (SHINGRIX) (1 of 2) Medicare Wellness Visit 02/05/2005 PNEUMOCOCCAL VACCINES 65+ 02/05/2005 (1 of 2 - PCV13) INFLUENZA VACCINE (#1) 2018 documented as of this encounter Results Not on filedocumented in this encounter Insurance Type Payer Benefit Subscriber ID Effective Phone Address Plan / Dates Group Medicare Adv PPO WELLCARE MEDICARE NON WELLCARE [id number] 2018- CONTRACTED MEDICARE Present NON CONTRACTED Medicare Adv HMO [employer] [place] [employer] [id number] 2018-P [place] PL[employer] resent [place] [employer] documented as of this encounter
--- NOTE | 2019-01-14 19:20 | NUR ---
Urine culture collected and awaiting transport to the lab at the hospital.
[2019-01-14] MEDS ORDERED: SODIUM CHLORIDE 0.9% 500ML 500 ML ONE (20:31)
[2019-01-14] MEDS ORDERED: IOPAMIDOL 370 MG/ML 200 ML INFUS..BTL INJ ONE (20:32)
--- NOTE | 2019-01-14 23:00 | NUR ---
ATTEMPTED TO PLACE 20FR CASON CATHETER WITH CASON LEG BAG BUT UNABLE TO ADVANCE CASON PAST MEATUS AFTER SEVERAL ATTEMPTS, NOTIFIED DR. JERNIGAN AND AGREED TO ATTEMPT INSERTION OF 18FR CASON INSTEAD, ONCE RETURNED TO ROOM, PATIENT DECIDED TO WAIT TILL EITHER FRIDAY OR FRIDAY TO SEE DR. BROWN, PT STATES SINCE HE IS STILL ABLE TO VOID WITH OCCASIONAL CLOTS IN URINE HE WOULD LIKE TO SEE IF CAN WAIT TO EVALUATED BY DR. BROWN, NOTIFIED DR. JERNIGAN OF PATIENTS DESIRE TO HOLD OFF ON CASON INSERTION, DR JERNIGAN SPOKE WITH PATIENT AND PATIENT UNDERSTANDS INSTRUCTIONS TO IMMEDIATELY RETURN TO NEAREST EMERGENCY ROOM FOR ANY SIGNS OR SYMPTOMS OF URINARY DISCOMFORT, RETENTION, OR IF URINE BECOMES "DAWIT BLOODY"? PT AND PT'S SPOUSE VERBALIZED UNDERSTANDING INSTRUCTIONS. DR. HECK STATES WILL NOTIFY DR. BROWN OR PATIENTS DESIRE AND UNDERSTANDING OF IMPORTANT FOLLOW UP VISIT WITH DR. BROWN (PT TO CALL IN AM WEL TO DR. BROWN'S OFFICE).
--- NOTE | 2019-01-14 23:06 | Diagnostic Imaging Report ---
EXAM: CT Abdomen and Pelvis WITHOUT and WITH contrast INDICATION: ^[id number] ^[id number] COMPARISON: None. TECHNIQUE: Abdomen and pelvis were scanned utilizing a multidetector helical scanner from the lung base to the pubic symphysis before and after administration of IV contrast. Coronal and sagittal reformations were obtained. Dose modulation, iterative reconstruction, and/or weight based adjustment of the mA/kV was utilized to reduce the radiation dose to as low as reasonably achievable. Hematuria (CT Urogram) protocol was performed. Scan was performed pre- in supine position and nephrogenic/excretory phase with a 10 minute split bolus. IV CONTRAST: 100 mL of Isovue-370 ORAL CONTRAST: None COMPLICATIONS: None RADIATION DOSE: Total DLP: 1835.11 mGy*cm Estimated effective dose: (DLP x 0.015 x size factor) mSv CTDIvol has been reviewed. It is below the limits set by the Radiation Protocol Committee (RPC). FINDINGS: LINES and TUBES: None. LOWER THORAX: Bibasilar scarring. Emphysematous changes. 4 mm right upper lobe nodule. Borderline heart size. HEPATOBILIARY: No focal hepatic lesions. No biliary ductal dilation. GALLBLADDER: Surgically absent. SPLEEN: No splenomegaly. PANCREAS: Atrophic. No focal masses or ductal dilatation. Punctate pancreatic body calcification, could be vascular or related to prior pancreatitis. ADRENALS: No adrenal nodules KIDNEYS/URETERS: Kidneys: Normal appearance bilaterally. No hydronephrosis or perinephric stranding. Cyst: Right midpole parapelvic cyst. Exophytic left superior pole hypodensity is too small to characterize, but is probably a cyst as well. Mass: None. Stones: None. Upper collecting systems: No irregularities or filling defects. Ureters: Distal right and left and proximal left ureter segments of nonopacification, likely due to peristalsis. Bladder: No mass or filling defects. GI TRACT: No abnormal distention, wall thickening, or evidence of bowel obstruction. There are diverticula within the colon without evidence of diverticulitis. Appendix is normal. PELVIC ORGANS/BLADDER: Few prostate calcifications versus brachytherapy seeds (series 5, image 88). There is a 2.6 x 2.1 x 3.9 cm peripherally enhancing collection between prostate and rectum (series 5, image 89). LYMPH NODES: No lymphadenopathy. Bilateral pelvic sidewall geronimo dissection clips. No retroperitoneal lymphadenopathy. Nonspecific 1.1 cm right inguinal lymph node. VESSELS: There is mild to moderate atherosclerotic disease in the aorta and major arterial branches. Ectatic focal infrarenal abdominal aorta measuring 2.8 cm. PERITONEUM / RETROPERITONEUM: No free air or fluid. BONES: Unremarkable. SOFT TISSUES: Distal anterior abdominal wall surgical scar. Small fat-containing right inguinal hernia. IMPRESSION: 1. No nephrolithiasis or evidence of obstructive urolithiasis. 2. No filling defects within opacified collecting system/ureters. 3. 3.9 cm peripherally enhancing collection between prostate and rectum, could represent an abscess. 4. Sigmoid diverticulosis without evidence of diverticulitis. 5. 4 mm right upper lobe lung nodule. Recommend follow-up with chest CT in 6-12 months. Signed by: Dr. David Singh MD on 01/14/2019 11:03 PM
== END 2019-01-14 23:20 | disposition home or self-care (01) ==
LOC: FSED 18:49
DX: R31.9 Hematuria, unspecified (principal)
CPT/HCPCS: 51700; 74178; 81003; 87086; 87186; 99283; J7040; Q9967

== ENCOUNTER → 2020-03-17 | Day surgery (SDC) | payer MEDICARE ==
[2020-03-14 15:26] LABS: BASOPHILS % 0.7 % (0.0-1.0); EOSINOPHILS # (AUTO) 0.2 (0.0-0.4); EOSINOPHILS % 4.2 % (0.0-6.0); HEMATOCRIT 33.1 % (38.2-49.6); HEMOGLOBIN 10.7 g/dL (14.0-18.0); LYMPHOCYTES # (AUTO) 1.1 (1.0-3.2); LYMPHOCYTES % 25.9 % (18.0-39.1); MEAN CORPUSCULAR HGB CONC 32.3 g/dL (31-35); MEAN CORPUSCULAR VOLUME 95.9 fL (81-99); MONOCYTES # (AUTO) 0.5 (0.2-0.8); MONOCYTES % 11.4 % (4.4-11.3); NEUTROPHILS # (AUTO) 2.5 (2.1-6.9); NEUTROPHILS % 57.3 % (38.7-80.0); PLATELET COUNT 181 x10e3/uL (140-360); RED BLOOD COUNT 3.45 x10e6/uL (4.3-5.7)
[2020-03-14 15:40] LABS: ANION GAP 14.3 mmol/L (8-16); BLOOD UREA NITROGEN 32 mg/dL (7-26); BUN/CREATININE RATIO 34 (6-25); CARBON DIOXIDE 24 mmol/L (22-29); CHLORIDE 109 mmol/L (98-107); CREATININE, SERUM 0.93 mg/dL (0.72-1.25); EST GLOMERULAR FILTRATION RATE > 60 ML/MIN (60-); GLUCOSE 104 mg/dL (74-118); POTASSIUM 4.3 mmol/L (3.5-5.1); SODIUM 143 mmol/L (136-145)
[~2020-03-17] MED LIST changes: +B&O 60MG R/S 60 MG SUPP PR ONE; +BOTULINUM TOXIN TYPE A 100 UNIT VIAL IM ONE; +CEFTRIAXONE SOD 1 GM/NS 50 ML 50 ML IV ONE; +IOPAMIDOL 300MG/ML 50ML INFUS..BTL IV ONE; +SLOW-MAG64 MG PO
[2020-03-17 12:00] VITALS: BP 118/80
== END | disposition home or self-care (01) ==
LOC: OR 08:21
PROVIDERS: ATTEND Urology
DX: N39.41 Urge incontinence (principal); N39.0 Urinary tract infection, site not specified; N35.912 Unspecified bulbous urethral stricture, male; Z85.46 Personal history of malignant neoplasm of prostate; N32.89 Other specified disorders of bladder; N32.3 Diverticulum of bladder; N36.8 Other specified disorders of urethra; Z98.890 Other specified postprocedural states; N40.1 Benign prostatic hyperplasia with lower urinary tract symptoms; R35.1 Nocturia; N48.6 Induration penis plastica; N52.9 Male erectile dysfunction, unspecified; E29.1 Testicular hypofunction; R39.14 Feeling of incomplete bladder emptying; N32.81 Overactive bladder; R97.20 Elevated prostate specific antigen [PSA]; N28.1 Cyst of kidney, acquired; Z01.810 Encounter for preprocedural cardiovascular examination; Z01.812 Encounter for preprocedural laboratory examination; Z01.818 Encounter for other preprocedural examination; Z20.822 Contact with and (suspected) exposure to COVID-19; Z68.30 Body mass index [BMI] 30.0-30.9, adult; Z87.891 Personal history of nicotine dependence; Z92.3 Personal history of irradiation; Z80.52 Family history of malignant neoplasm of bladder
CPT/HCPCS: 36415; 52281; 71046; 74420; 80048; 85025; 93005; C1758; J0587; J0696; Q9967; U0002